=== PATIENT | male | born 1960 | race Caucasian/White ===

== ENCOUNTER 2017-08-14 19:20 | Inpatient (IN) | payer OTHER ==
[~2017-08-14] VITALS: Ht 175.3 cm; Wt 75.2 kg
[2017-08-14 20:30] LABS: Basophils # (auto) 0.1 uL; Basophils % (auto) 0.9 % (0.0-2.0); Eosinophils # (auto) 0.4 uL; Hematocrit 47.2 % (41.0-53.0); Hemoglobin 15.9 g/dL (13.5-17.5); Lymphocytes # (auto) 3.8 uL; Lymphocytes % (auto) 32.2 % (10.0-50.0); Mean Corpuscular Hemoglobin 29.9 pg (28.0-32.0); Mean Corpuscular Hgb Conc. 33.7 g/dL (32.0-36.0); Mean Corpuscular Volume 88.7 fL (80.0-100.0); Mean Platelet Volume 8.6 fL (6.9-10.8); Monocytes # (auto) 0.6 uL; Monocytes % (auto) 5.1 % (0.0-12.0); Neutrophils # (auto) 6.9 uL; Neutrophils % (auto) 58.8 % (37.0-80.0); Platelet Count (auto) 205 10^3/uL (140-450); Red Cell Distribution Width 14.3 % (11.8-14.3); White Blood Cell 11.8 10^3/uL (4.4-10.8)
[2017-08-14] MEDS ORDERED: IPRATROPIUM BROM 0.5 MG/2.5ML INH SOL NEB ONE (20:30)
[2017-08-14] MEDS ORDERED: ASPirin 81 mg TAB PO ONE (20:30)
[2017-08-14] MEDS ORDERED: ALBUTEROL SULF 2.5 MG/0.5ML(0.5%) NEB SOLN NEB ONE (20:30)
[2017-08-14 20:42] LABS: Albumin 3.4 g/dL (3.4-5.0); Anion Gap 7 (5-15); Aspartate Aminotransferase 29 U/L (15-37); BUN/Creatinine Ratio 8.4; Blood Urea Nitrogen 8 mg/dL (7-18); Calcium 8.3 mg/dL (8.5-10.1); Carbon Dioxide 22 mmol/L (21-32); Chloride 110 mmol/L (98-107); GFR African American 105 mL/min; GFR Non-African American 87 mL/min; Glucose 80 mg/dL (74-106); Magnesium 1.9 mg/dL (1.6-2.6); Potassium 3.2 mmol/L (3.5-5.1); Sodium 139 mmol/L (136-145)
[2017-08-14 20:47] LABS: Alkaline Phosphatase 57 U/L (45-117); Bilirubin, Total 0.6 mg/dL (0.2-1.0)
[2017-08-14] MEDS ORDERED: ACETAMINOPHEN 325 MG TAB PO ONE (21:00)
[2017-08-14] MEDS ORDERED: LORazepam 0.5 MG TAB PO ONE (21:00)
[2017-08-15] VITALS (8 sets, daily range): BP systolic 123–161; BP diastolic 63–97
[2017-08-15] MEDS ORDERED: MORPHINE SULF INJ 2 MG/ML SYRINGE 1ML IV PRN (02:30)
[2017-08-15] MEDS ORDERED: NITROGLYCERIN 0.4 MG SL TAB SL PRN (02:30)
[2017-08-15] MEDS ORDERED: ACETAMINOPHEN 500 MG TAB PO PRN (03:30)
[2017-08-15] MEDS ORDERED: ONDANSETRON HCL 4 MG/2 ML VIAL IV PRN (03:30)
[2017-08-15] MEDS ORDERED: POTASSIUM CHL 20 Meq TABLET PO ONE (03:30)
[2017-08-15] MEDS: ALPRAZolam 0.5 MG TAB PO PRN ×2 (03:46→15:56)
[2017-08-15] MEDS ORDERED: TAMS0.4C36 PO (04:19)
[2017-08-15] MEDS ORDERED: HYDR-4683 PO (04:19)
[2017-08-15] MEDS ORDERED: ALPR0.5T PO (04:19)
[2017-08-15] MEDS ORDERED: LISI10TA6 PO (04:19)
[2017-08-15 05:11] LABS: Urine Bilirubin Negative (Negative); Urine Blood Negative /uL (Negative); Urine Color Yellow (Yellow); Urine Glucose Normal (Normal); Urine Ketone Negative (Negative); Urine Nitrite Negative (Negative); Urine RBC <1 /hpf (0 - 3); Urine Squamous Epithelial Cell FEW /hpf (<5); Urine Urobilinogen Normal (Negative); Urine pH 5.5 (5.0-8.0)
[2017-08-15] MEDS ORDERED: INFLUENZA QUAD 2017-2018 0.5 ML SYRG IM ONE ×2 (05:30→05:56)
[2017-08-15 06:21] LABS: Basophils # (auto) 0.1 uL; Eosinophils # (auto) 0.5 uL; Eosinophils % (auto) 5.3 % (0.0-7.0); Hematocrit 44.5 % (41.0-53.0); Hemoglobin 14.9 g/dL (13.5-17.5); Lymphocytes # (auto) 3.9 uL; Lymphocytes % (auto) 40.8 % (10.0-50.0); Mean Corpuscular Hemoglobin 29.9 pg (28.0-32.0); Mean Corpuscular Hgb Conc. 33.4 g/dL (32.0-36.0); Mean Corpuscular Volume 89.4 fL (80.0-100.0); Mean Platelet Volume 8.5 fL (6.9-10.8); Monocytes # (auto) 0.8 uL; Monocytes % (auto) 8.3 % (0.0-12.0); Neutrophils # (auto) 4.3 uL; Neutrophils % (auto) 44.6 % (37.0-80.0); Nucleated Red Blood Cells % 0.1 %; Platelet Count (auto) 206 10^3/uL (140-450); Red Cell Distribution Width 14.3 % (11.8-14.3); White Blood Cell 9.7 10^3/uL (4.4-10.8)
[2017-08-15] MEDS: HYDROcodone-ACET 5/325MG TAB PO PRN ×2 (10:26→17:48)
[2017-08-15] MEDS: METOPROLOL TARTRATE 25 MG TAB PO SCH ×2 (10:26→21:52)
[2017-08-15] MEDS ORDERED: POTASSIUM CHL 10% (20 MEQ/15ML) 15ml ORAL SOLN PO ONE (10:30)
[2017-08-15] MEDS ORDERED: TAMSULOSIN HYDROCHLORIDE 0.4 MG CAP PO SCH (18:00)
[2017-08-16 05:36] VITALS: BP 129/74
[2017-08-16 06:23] LABS: Basophils # (auto) 0.1 uL; Eosinophils # (auto) 0.5 uL; Eosinophils % (auto) 5.7 % (0.0-7.0); Hematocrit 49.4 % (41.0-53.0); Hemoglobin 16.7 g/dL (13.5-17.5); Lymphocytes # (auto) 3.1 uL; Lymphocytes % (auto) 34.5 % (10.0-50.0); Mean Corpuscular Hgb Conc. 33.8 g/dL (32.0-36.0); Mean Platelet Volume 8.7 fL (6.9-10.8); Monocytes # (auto) 0.7 uL; Monocytes % (auto) 7.6 % (0.0-12.0); Neutrophils # (auto) 4.6 uL; Neutrophils % (auto) 51.2 % (37.0-80.0); Nucleated Red Blood Cells % 0.2 %; Platelet Count (auto) 199 10^3/uL (140-450); Red Cell Distribution Width 14.2 % (11.8-14.3)
[2017-08-16 06:36] LABS: INR 0.98 (0.9-1.15); Prothrombin Time 10.7 sec (9.37-12.3)
[2017-08-16 06:40] LABS: Albumin 3.4 g/dL (3.4-5.0); BUN/Creatinine Ratio 12.9; Magnesium 2.4 mg/dL (1.6-2.6); Total Protein 7.3 g/dL (6.4-8.2)
[2017-08-16 06:41] LABS: Bilirubin, Total 0.9 mg/dL (0.2-1.0)
[2017-08-16] MEDS: HYDROcodone-ACET 5/325MG TAB PO PRN ×2 (07:58→13:38)
[2017-08-16] MEDS: ALPRAZolam 0.5 MG TAB PO PRN (07:58)
[2017-08-16] MEDS: METOPROLOL TARTRATE 25 MG TAB PO SCH (09:04)
[2017-08-16 09:07] VITALS: BP 183/79
[2017-08-16] MEDS ORDERED: LISINOPRIL 20 MG TAB PO ONE (10:15)
[2017-08-16 12:03] VITALS: BP 137/75
[2017-08-16] MEDS ORDERED: METO25TA3 PO (13:38)
[2017-08-16 14:00] VITALS: BP 137/75
== END 2017-08-16 14:54 | disposition home or self-care (01) | DRG 310 ==
LOC: EDBD 19:20 → ER 19:25 → TELE 19:26 → TELE-CENTR 08-15 03:30
PROVIDERS: ADMIT Nurse Practitioner Family; ATTEND Nurse Practitioner Family
DX: I49.8 Other specified cardiac arrhythmias (principal); E87.6 Hypokalemia; I47.1 Supraventricular tachycardia; F41.9 Anxiety disorder, unspecified; I10 Essential (primary) hypertension; N40.0 Benign prostatic hyperplasia without lower urinary tract symptoms; I45.10 Unspecified right bundle-branch block; Z87.891 Personal history of nicotine dependence
CPT/HCPCS: 36415; 71010; 80053; 81001; 82962; 83735; 84443; 84484; 85025; 85610; 93005; 94640; 94761; 96372

== ENCOUNTER 2021-07-29 14:32 | Inpatient (IN) | payer OTHER ==
[~2021-07-29] VITALS: Ht 172.7 cm; Wt 89.9 kg
[~2021-07-29 14:32] MED LIST: ALPR0.5T PO; HYDR-4833 PO; LISI-716 PO; METO25TA36 PO; TAMS0.4C36 PO
[2021-07-29 15:53] LABS: BUN/Creatinine Ratio 11.7; Calcium 8.3 mg/dL (8.5-10.1); Magnesium 2.4 mg/dL (1.6-2.6); Potassium 3.2 mmol/L (3.5-5.1)
[2021-07-29 15:57] LABS: Basophils # (auto) 0.1 10 ^3/uL (0-0.2); Basophils % (auto) 0.4 % (0.0-2.0); Eosinophils # (auto) 0.5 10 ^3/uL (0-0.8); Eosinophils % (auto) 3.3 % (0.0-7.0); Hematocrit 38.3 % (41.0-53.0); Hemoglobin 12.6 g/dL (13.5-17.5); Lymphocytes # (auto) 2.3 10 ^3/uL (0.4-5.4); Lymphocytes % (auto) 14.3 % (10.0-50.0); Mean Corpuscular Hemoglobin 27.6 pg (28.0-32.0); Mean Corpuscular Hgb Conc. 32.8 g/dL (32.0-36.0); Mean Corpuscular Volume 83.9 fL (80.0-100.0); Monocytes # (auto) 0.9 10 ^3/uL (0-1.3); Monocytes % (auto) 5.3 % (0.0-12.0); Neutrophils # (auto) 12.4 10 ^3/uL (1.6-8.6); Neutrophils % (auto) 76.7 % (37.0-80.0); Red Blood Cells 4.56 10^6/uL (4.5-5.90); Red Cell Distribution Width 13.8 % (11.8-14.3); White Blood Cell 16.2 10^3/uL (4.4-10.8)
[2021-07-29 15:58] LABS: Bilirubin, Total 0.6 mg/dL (0.2-1.0); Total Protein 6.7 g/dL (6.4-8.2)
[2021-07-29 16:17] LABS: INR 1.07 (0.9-1.15)
[2021-07-29] MEDS ORDERED: POTASSIUM EFFERVESENT TAB 25 MEQ PO ONE (16:45)
[2021-07-29 19:19] LABS: Urine Bacteria NONE SEEN /hpf (None Seen); Urine Blood 1+ /uL (Negative); Urine Hyaline Cast MANY /lpf (0 - 2); Urine Mucus FEW (None Seen); Urine Specific Gravity 1.028 (1.001-1.035); Urine WBC 3 /hpf (0 - 3)
[2021-07-29] MEDS ORDERED: ASPirin 325 MG TAB PO ONE (19:45)
[2021-07-29] MEDS ORDERED: ONDANSETRON HCL 4 MG/2 ML VIAL IV PRN (22:45)
[2021-07-29] MEDS ORDERED: ALBUMIN 25% 100 ML IV ONE (22:45)
[2021-07-29] MEDS ORDERED: MORPHINE SULFATE 4 MG/ML SYR/VIAL IV PRN (22:45)
[2021-07-29] MEDS ORDERED: DOCUSATE SOD 100 MG CAP PO PRN (22:45)
[2021-07-30] MEDS ORDERED: MORPHINE SULFATE INJECTION 2 MG/ML SYRG IV PRN (00:15)
[2021-07-30] MEDS ORDERED: NITROGLYCERIN 0.4 MG SL TAB SL PRN (00:15)
[2021-07-30] MEDS: SODIUM CHLOR 0.9% PF (SALINE LOCK) 10ML VIAL/SYR IV SCH ×3 (06:07→22:47)
[2021-07-30 07:56] LABS: Basophils # (auto) 0.1 10 ^3/uL (0-0.2); Basophils % (auto) 0.5 % (0.0-2.0); Eosinophils # (auto) 0.9 10 ^3/uL (0-0.8)
[2021-07-30 07:58] LABS: Eosinophils % (auto) 6.4 % (0.0-7.0); Hematocrit 36.8 % (41.0-53.0); Hemoglobin 12.2 g/dL (13.5-17.5); Lymphocytes # (auto) 1.9 10 ^3/uL (0.4-5.4); Lymphocytes % (auto) 13.4 % (10.0-50.0); Mean Corpuscular Hemoglobin 27.8 pg (28.0-32.0); Mean Corpuscular Hgb Conc. 33.2 g/dL (32.0-36.0); Mean Corpuscular Volume 83.8 fL (80.0-100.0); Monocytes # (auto) 0.8 10 ^3/uL (0-1.3); Monocytes % (auto) 5.6 % (0.0-12.0); Neutrophils # (auto) 10.6 10 ^3/uL (1.6-8.6); Neutrophils % (auto) 74.1 % (37.0-80.0); Red Blood Cells 4.39 10^6/uL (4.5-5.90); Red Cell Distribution Width 13.8 % (11.8-14.3); White Blood Cell 14.4 10^3/uL (4.4-10.8)
[2021-07-30 08:10] LABS: Potassium 3.8 mmol/L (3.5-5.1)
[2021-07-30 08:20] LABS: Albumin 2.3 g/dL (3.4-5.0); BUN/Creatinine Ratio 14.6; Bilirubin, Total 0.5 mg/dL (0.2-1.0); Calcium 8.3 mg/dL (8.5-10.1); Total Protein 6.9 g/dL (6.4-8.2)
[2021-07-30 09:00] VITALS: BP 141/69
[2021-07-30] MEDS: cefTRIAXone 1GM/50ML D5W 50 ML IV SCH (09:35)
[2021-07-30] MEDS: ASPirin 81 mg TAB PO SCH (09:35)
[2021-07-30 09:45] VITALS: BP 151/88
[2021-07-30] MEDS: ACETAMINOPHEN 325 MG TAB PO PRN ×2 (10:15→22:55)
[2021-07-30] MEDS: ENOXAPARIN SOD 40 MG/0.4 ML SYRINGE SC SCH (10:25)
[2021-07-30] MEDS: METOPROLOL TARTRATE 25 MG TAB PO SCH ×2 (10:27→22:48)
[2021-07-30] MEDS: LISINOPRIL 20 MG TAB PO SCH (10:27)
[2021-07-30 17:13] VITALS: BP 99/56
[2021-07-30 22:00] VITALS: BP 131/76
[2021-07-30] MEDS: ATORVASTATIN 20 MG TAB PO SCH (22:47)
[2021-07-31] MEDS: SODIUM CHLOR 0.9% PF (SALINE LOCK) 10ML VIAL/SYR IV SCH ×3 (06:10→21:14)
[2021-07-31] MEDS: cefTRIAXone 1GM/50ML D5W 50 ML IV SCH (08:07)
[2021-07-31] MEDS ORDERED: ADENOSINE 69 MG in GIVE UN-DILUTED 0 ML IV STA (08:33)
[2021-07-31 09:00] VITALS: BP 116/74
[2021-07-31] MEDS: METOPROLOL TARTRATE 25 MG TAB PO SCH ×2 (09:20→21:17)
[2021-07-31] MEDS: ASPirin 81 mg TAB PO SCH (09:20)
[2021-07-31] MEDS: ENOXAPARIN SOD 40 MG/0.4 ML SYRINGE SC SCH (09:20)
[2021-07-31] MEDS: LISINOPRIL 20 MG TAB PO SCH (09:21)
[2021-07-31] MEDS: HYDROcodone-ACET 5/325MG TAB PO PRN ×3 (10:16→22:14)
[2021-07-31 11:00] VITALS: BP 124/63
[2021-07-31 11:24] LABS: Hepatitis B Surface Antibody Negative
[2021-07-31 11:54] LABS: Hepatitis A Total Antibody Negative
[2021-07-31 13:11] LABS: Alcohol, Urine < 3.0 mg/dL (0-10); Amphetamine Screen, Urine NEGATIVE (NEGATIVE); Barbiturate Scree,Urine NEGATIVE (NEGATIVE); Benzodiazephine Screen, Urine NEGATIVE (NEGATIVE); Cannabinoid Screen, Urine NEGATIVE (NEGATIVE); Cocaine Screen, Urine NEGATIVE (NEGATIVE); Opiate Scree,Urine NEGATIVE (NEGATIVE); Phencyclidine Screen, Urine NEGATIVE (NEGATIVE)
[2021-07-31 15:15] LABS: Hepatitis C Antibody Negative (Negative)
[2021-07-31 16:54] VITALS: BP 127/67
[2021-07-31] MEDS: ATORVASTATIN 20 MG TAB PO SCH (21:15)
[2021-07-31 22:00] VITALS: BP 101/69
[2021-08-01 05:00] VITALS: BP 125/70
[2021-08-01 05:07] LABS: RPR Non Reactive (Non Reactive)
[2021-08-01] MEDS: SODIUM CHLOR 0.9% PF (SALINE LOCK) 10ML VIAL/SYR IV SCH ×3 (05:44→20:23)
[2021-08-01 07:23] LABS: Albumin 1.9 g/dL (3.4-5.0); Bilirubin, Direct 0.1 mg/dL (0-0.2)
[2021-08-01 07:26] LABS: Bilirubin, Total 0.3 mg/dL (0.2-1.0); Total Protein 5.6 g/dL (6.4-8.2)
[2021-08-01 09:00] VITALS: BP 146/82
[2021-08-01] MEDS: cefTRIAXone 1GM/50ML D5W 50 ML IV SCH (09:09)
[2021-08-01] MEDS: ASPirin 81 mg TAB PO SCH (09:09)
[2021-08-01] MEDS: METOPROLOL TARTRATE 25 MG TAB PO SCH ×2 (09:09→20:23)
[2021-08-01] MEDS: ENOXAPARIN SOD 40 MG/0.4 ML SYRINGE SC SCH (09:10)
[2021-08-01] MEDS: LISINOPRIL 20 MG TAB PO SCH (09:10)
[2021-08-01] MEDS: HYDROcodone-ACET 5/325MG TAB PO PRN ×2 (10:27→20:24)
[2021-08-01 13:00] VITALS: BP 116/58
[2021-08-01] MEDS: NAPROXEN 500 MG TAB PO SCH ×2 (16:43→20:24)
[2021-08-01 16:47] VITALS: BP 147/83
[2021-08-01] MEDS: ATORVASTATIN 20 MG TAB PO SCH (20:23)
[2021-08-01 22:00] VITALS: BP 131/100
[2021-08-02 05:00] VITALS: BP 102/64
[2021-08-02] MEDS: SODIUM CHLOR 0.9% PF (SALINE LOCK) 10ML VIAL/SYR IV SCH ×3 (05:35→21:01)
[2021-08-02 08:50] VITALS: BP 105/60
[2021-08-02 09:00] VITALS: BP_SYST 128; BP_SYST 81; BP_DIAS 68; BP_DIAS 69
[2021-08-02] MEDS: cefTRIAXone 1GM/50ML D5W 50 ML IV SCH (09:46)
[2021-08-02] MEDS: ASPirin 81 mg TAB PO SCH (09:47)
[2021-08-02] MEDS: NAPROXEN 500 MG TAB PO SCH ×2 (09:47→21:00)
[2021-08-02] MEDS: HYDROcodone-ACET 5/325MG TAB PO PRN ×3 (09:47→20:49)
[2021-08-02] MEDS: ENOXAPARIN SOD 40 MG/0.4 ML SYRINGE SC SCH (09:50)
[2021-08-02] MEDS: METOPROLOL TARTRATE 25 MG TAB PO SCH ×3 (10:00→21:00)
[2021-08-02 10:30] VITALS: BP 116/62
[2021-08-02] MEDS: DOXYCYCLINE 100 MG TAB/CAP PO ONE ×2 (11:43→16:32)
[2021-08-02] MEDS: LISINOPRIL 20 MG TAB PO SCH (11:43)
[2021-08-02 11:55] LABS: Basophils # (auto) 0.1 10 ^3/uL (0-0.2); Eosinophils # (auto) 0.8 10 ^3/uL (0-0.8); Monocytes # (auto) 0.8 10 ^3/uL (0-1.3); Neutrophils # (auto) 7.9 10 ^3/uL (1.6-8.6)
[2021-08-02 11:59] LABS: Basophils % (auto) 0.7 % (0.0-2.0); Eosinophils % (auto) 7.3 % (0.0-7.0); Hematocrit 34.7 % (41.0-53.0); Hemoglobin 11.4 g/dL (13.5-17.5); Lymphocytes # (auto) 1.6 10 ^3/uL (0.4-5.4); Lymphocytes % (auto) 14.3 % (10.0-50.0); Mean Corpuscular Hemoglobin 27.3 pg (28.0-32.0); Mean Corpuscular Hgb Conc. 32.9 g/dL (32.0-36.0); Monocytes % (auto) 7.4 % (0.0-12.0); Neutrophils % (auto) 70.3 % (37.0-80.0); Red Blood Cells 4.18 10^6/uL (4.5-5.90); Red Cell Distribution Width 14.1 % (11.8-14.3); White Blood Cell 11.3 10^3/uL (4.4-10.8)
[2021-08-02 12:33] LABS: Albumin 1.8 g/dL (3.4-5.0); Potassium 4.3 mmol/L (3.5-5.1)
[2021-08-02 12:36] LABS: BUN/Creatinine Ratio 23.2; Bilirubin, Total 0.3 mg/dL (0.2-1.0); Total Protein 5.4 g/dL (6.4-8.2)
[2021-08-02 13:00] VITALS: BP 106/66
[2021-08-02 16:16] LABS: Albumin 1.8 g/dL (3.4-5.0); Bilirubin, Direct 0.1 mg/dL (0-0.2)
[2021-08-02 16:19] LABS: Bilirubin, Total 0.3 mg/dL (0.2-1.0); Total Protein 5.5 g/dL (6.4-8.2)
[2021-08-02] MEDS: DOXYCYCLINE 100 MG TAB/CAP PO SCH (21:00)
[2021-08-02] MEDS: ATORVASTATIN 20 MG TAB PO SCH (21:01)
[2021-08-02 22:00] VITALS: BP 106/57
[2021-08-03 05:00] VITALS: BP 93/55
[2021-08-03] MEDS: SODIUM CHLOR 0.9% PF (SALINE LOCK) 10ML VIAL/SYR IV SCH ×3 (06:07→22:10)
[2021-08-03 08:05] LABS: Basophils # (auto) 0.1 10 ^3/uL (0-0.2); Basophils % (auto) 0.5 % (0.0-2.0); Hemoglobin 11.8 g/dL (13.5-17.5); Lymphocytes # (auto) 1.6 10 ^3/uL (0.4-5.4); Neutrophils # (auto) 8.6 10 ^3/uL (1.6-8.6)
[2021-08-03 08:09] LABS: Eosinophils # (auto) 1.3 10 ^3/uL (0-0.8); Eosinophils % (auto) 10.3 % (0.0-7.0); Hematocrit 36.3 % (41.0-53.0); Mean Corpuscular Hgb Conc. 32.5 g/dL (32.0-36.0); Monocytes # (auto) 0.7 10 ^3/uL (0-1.3); Monocytes % (auto) 5.6 % (0.0-12.0); Neutrophils % (auto) 70.6 % (37.0-80.0); Red Blood Cells 4.37 10^6/uL (4.5-5.90); Red Cell Distribution Width 14.2 % (11.8-14.3); White Blood Cell 12.2 10^3/uL (4.4-10.8)
[2021-08-03 08:39] LABS: Albumin 1.7 g/dL (3.4-5.0); Bilirubin, Direct 0.2 mg/dL (0-0.2); Bilirubin, Total 0.3 mg/dL (0.2-1.0); Total Protein 5.9 g/dL (6.4-8.2)
[2021-08-03 08:44] VITALS: BP 101/56
[2021-08-03] MEDS: HYDROcodone-ACET 5/325MG TAB PO PRN ×3 (09:18→22:10)
[2021-08-03] MEDS: ENOXAPARIN SOD 40 MG/0.4 ML SYRINGE SC SCH (09:18)
[2021-08-03] MEDS: ASPirin 81 mg TAB PO SCH (09:18)
[2021-08-03] MEDS: NAPROXEN 500 MG TAB PO SCH ×2 (09:19→22:10)
[2021-08-03] MEDS: DOXYCYCLINE 100 MG TAB/CAP PO SCH ×2 (09:19→22:09)
[2021-08-03 13:00] VITALS: BP 107/63
[2021-08-03 17:00] VITALS: BP 132/78
[2021-08-03 22:00] VITALS: BP 148/73
[2021-08-03] MEDS: ATORVASTATIN 20 MG TAB PO SCH (22:10)
[2021-08-04] MEDS ORDERED: dilTIAZem 25 MG/5 ML VIAL IV ONE ×2 (03:34→03:45)
[2021-08-04] MEDS: SODIUM CHLOR 0.9% PF (SALINE LOCK) 10ML VIAL/SYR IV SCH ×3 (04:56→21:09)
[2021-08-04 05:00] VITALS: BP 99/68
[2021-08-04 06:37] LABS: Albumin 1.7 g/dL (3.4-5.0); Bilirubin, Direct 0.2 mg/dL (0-0.2); Bilirubin, Total 0.3 mg/dL (0.2-1.0); Total Protein 5.1 g/dL (6.4-8.2)
[2021-08-04 09:00] VITALS: BP 92/60
[2021-08-04] MEDS: ASPirin 81 mg TAB PO SCH (11:32)
[2021-08-04] MEDS: DOXYCYCLINE 100 MG TAB/CAP PO SCH ×2 (11:33→21:10)
[2021-08-04] MEDS: NAPROXEN 500 MG TAB PO SCH ×2 (11:34→21:10)
[2021-08-04] MEDS: ENOXAPARIN SOD 40 MG/0.4 ML SYRINGE SC SCH (11:35)
[2021-08-04] MEDS: HYDROcodone-ACET 5/325MG TAB PO PRN ×2 (11:55→23:26)
[2021-08-04 13:00] VITALS: BP 89/68
[2021-08-04] MEDS: METOPROLOL TARTRATE 25 MG TAB PO SCH ×2 (13:04→21:11)
[2021-08-04] MEDS ORDERED: SODIUM CHLORIDE 0.9% 250 ML IV ONE (14:45)
[2021-08-04 17:00] VITALS: BP 129/65
[2021-08-04 21:03] VITALS: BP 130/80
[2021-08-04] MEDS: methylPREDNISolone SOD SUCC 40 MG/ML VL IV SCH (21:10)
[2021-08-04] MEDS: ATORVASTATIN 20 MG TAB PO SCH (21:10)
[2021-08-05 06:04] LABS: Albumin 1.8 g/dL (3.4-5.0)
[2021-08-05 06:10] LABS: Bilirubin, Direct 0.2 mg/dL (0-0.2); Bilirubin, Total 0.4 mg/dL (0.2-1.0); Total Protein 6.1 g/dL (6.4-8.2)
[2021-08-05] MEDS: SODIUM CHLOR 0.9% PF (SALINE LOCK) 10ML VIAL/SYR IV SCH ×2 (06:34→13:59)
[2021-08-05] MEDS: methylPREDNISolone SOD SUCC 40 MG/ML VL IV SCH ×3 (06:40→22:04)
[2021-08-05 08:41] VITALS: BP 145/87
[2021-08-05] MEDS: DOXYCYCLINE 100 MG TAB/CAP PO SCH ×2 (08:57→22:05)
[2021-08-05] MEDS: ENOXAPARIN SOD 40 MG/0.4 ML SYRINGE SC SCH (08:57)
[2021-08-05] MEDS: ASPirin 81 mg TAB PO SCH (08:57)
[2021-08-05] MEDS: METOPROLOL TARTRATE 25 MG TAB PO SCH ×2 (08:58→22:05)
[2021-08-05] MEDS: NAPROXEN 500 MG TAB PO SCH ×2 (08:59→22:05)
[2021-08-05] MEDS: HYDROcodone-ACET 5/325MG TAB PO PRN ×2 (09:01→14:05)
[2021-08-05 12:29] LABS: BUN/Creatinine Ratio 26.4; Calcium 8.2 mg/dL (8.5-10.1); Potassium 4.7 mmol/L (3.5-5.1)
[2021-08-05 13:00] VITALS: BP 125/76
[2021-08-05 17:00] VITALS: BP 149/91
[2021-08-05 20:00] VITALS: BP 133/65
[2021-08-05 21:30] VITALS: BP_SYST 153; BP_SYST 85; BP_DIAS 107; BP_DIAS 55
[2021-08-05] MEDS: ATORVASTATIN 20 MG TAB PO SCH (22:04)
[2021-08-06] MEDS: HYDROcodone-ACET 5/325MG TAB PO PRN ×4 (00:25→21:20)
[2021-08-06 05:00] VITALS: BP 127/70
[2021-08-06] MEDS: methylPREDNISolone SOD SUCC 40 MG/ML VL IV SCH ×3 (06:22→21:12)
[2021-08-06] MEDS: SODIUM CHLOR 0.9% PF (SALINE LOCK) 10ML VIAL/SYR IV SCH ×4 (06:23→21:11)
[2021-08-06 07:55] LABS: Albumin 1.9 g/dL (3.4-5.0); Bilirubin, Direct 0.1 mg/dL (0-0.2); Bilirubin, Total 0.3 mg/dL (0.2-1.0); Total Protein 5.6 g/dL (6.4-8.2)
[2021-08-06 09:00] VITALS: BP 125/72
[2021-08-06] MEDS: ASPirin 81 mg TAB PO SCH (09:05)
[2021-08-06] MEDS: NAPROXEN 500 MG TAB PO SCH ×2 (09:06→21:13)
[2021-08-06] MEDS: DOXYCYCLINE 100 MG TAB/CAP PO SCH ×2 (09:06→21:13)
[2021-08-06] MEDS: METOPROLOL TARTRATE 25 MG TAB PO SCH ×2 (09:06→21:13)
[2021-08-06] MEDS: ENOXAPARIN SOD 40 MG/0.4 ML SYRINGE SC SCH (09:07)
[2021-08-06 13:00] VITALS: BP 141/75
[2021-08-06 17:00] VITALS: BP 142/77
[2021-08-06] MEDS: ATORVASTATIN 20 MG TAB PO SCH (21:12)
[2021-08-06 22:00] VITALS: BP 133/70
[2021-08-07 05:00] VITALS: BP 138/76
[2021-08-07] MEDS: SODIUM CHLOR 0.9% PF (SALINE LOCK) 10ML VIAL/SYR IV SCH ×2 (06:02→14:13)
[2021-08-07] MEDS: methylPREDNISolone SOD SUCC 40 MG/ML VL IV SCH ×2 (06:03→14:13)
[2021-08-07 08:00] VITALS: BP 130/71
[2021-08-07 08:46] VITALS: BP 130/71
[2021-08-07] MEDS: ASPirin 81 mg TAB PO SCH (09:26)
[2021-08-07] MEDS: METOPROLOL TARTRATE 25 MG TAB PO SCH (09:26)
[2021-08-07] MEDS: ENOXAPARIN SOD 40 MG/0.4 ML SYRINGE SC SCH (09:27)
[2021-08-07] MEDS: DOXYCYCLINE 100 MG TAB/CAP PO SCH (09:27)
[2021-08-07] MEDS: NAPROXEN 500 MG TAB PO SCH (09:27)
[2021-08-07] MEDS: HYDROcodone-ACET 5/325MG TAB PO PRN ×2 (09:27→13:39)
[2021-08-07 13:18] VITALS: BP 151/87
[2021-08-07 13:32] VITALS: BP 130/71
== END 2021-08-07 15:09 | disposition home or self-care (01) | DRG 281 ==
LOC: ER 14:32 → TELE 07-30 00:06 → TELE-WESTW 07-30 08:50
PROVIDERS: ADMIT Nurse Practitioner Family; ATTEND Family Medicine
DX: I21.4 Non-ST elevation (NSTEMI) myocardial infarction (principal); A69.20 Lyme disease, unspecified; I47.1 Supraventricular tachycardia; E88.09 Other disorders of plasma-protein metabolism, not elsewhere classified; I10 Essential (primary) hypertension; Z20.822 Contact with and (suspected) exposure to COVID-19; Z96.652 Presence of left artificial knee joint; F10.10 Alcohol abuse, uncomplicated; F41.9 Anxiety disorder, unspecified; R42 Dizziness and giddiness; D75.839 Thrombocytosis, unspecified; D72.829 Elevated white blood cell count, unspecified; E87.6 Hypokalemia; R74.01 Elevation of levels of liver transaminase levels; I20.0 Unstable angina; R50.9 Fever, unspecified; I77.6 Arteritis, unspecified; B34.9 Viral infection, unspecified; Z82.3 Family history of stroke; Z87.891 Personal history of nicotine dependence; Z90.49 Acquired absence of other specified parts of digestive tract
CPT/HCPCS: 36415; 71045; 76705; 78452; 80048; 80053; 80061; 80076; 80307; 81001; 82728; 83735; 83880; 84484; 85025; 85610; 85652; 86038; 86141; 86431; 86592; 86644; 86645; 86658; 86664; 86703; 86704; 86706; 86708; 86738; 86778; 86803; 87040; 87086; 87340; 87426; 87804; 93005; 93017; 93306; 96365; 96367; G0378; J0153; J0696; P9047

== ENCOUNTER 2024-12-25 20:24 | Inpatient (IN) | payer OTHER ==
[~2024-12-25] VITALS: Ht 172.7 cm; Wt 93.7 kg
[~2024-12-25 20:24] MED LIST changes: -LISI-716 PO; +LISI10TA34 PO; -TAMS0.4C36 PO; +TAMS0.4C39 PO
[2024-12-25] MEDS ORDERED: ADENOSINE 6 MG/2 ML INJ IV ONE (20:28)
[2024-12-25] MEDS: ADENOSINE 6 MG/2 ML INJ IV ONE (20:29)
--- NOTE | 2024-12-25 20:46 | ED.PDOC ---
HPI Comments 64-year-old male with PMHx SVT brought in by EMS presents with a chief complaint of palpitations. Patient was given 6mg of Adenosine by EMS and EMS reports that patient did not convert in the field. Patient denies any active chest pain at this time or SOB. Patient is alert and oriented x 4. Patient is currently at 187 BPM at time of evaluation, converted to 109, then went back to 201. No other symptoms or modifying factors present at this time. 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 Notes, Medications, Allergies Allergies: Coded Allergies: NO KNOWN ALLERGIES (Unverified , 08/14/17) Home Meds Active Scripts Metoprolol Succinate (Toprol Xl) 25 Mg Tab, 1 TAB PO DAILY, #30 TAB 0 Refills Prov:DEVI OVALLES MD 08/16/17 Reported Medications Lisinopril (Lisinopril) 10 Mg Tab, 10 MG PO DAILY, TAB 08/15/17 Alprazolam (Xanax) 0.5 Mg Tb, 1 TAB PO BID, #60 TAB 08/15/17 Hydrocodone-Acetaminophen ([place] 5/325MG) 1 Tab Tb, 1 TAB PO TID, #90 TAB 08/15/17 Tamsulosin Hcl (Tamsulosin Hcl) 0.4 Mg Cap, 1 CAP PO DAILY, #30 CAP 5 Refills 08/15/17 Information Source: Patient, Emergency Med Personnel Mode of Arrival: EMS Severity: Moderate Timing: Minutes Duration: Since onset Prehospital treatment: 12 Lead EKG, Treatment (6mg Adenosine) Past Medical History PAST MEDICAL HISTORY: Anxiety, HTN Surgical History: Denies all surgeries Family History Family History: Unknown Social History Smoker: Quit Less Than 1 Year Alcohol: Denies ETOH Use Drugs: Denies Drug Use Lives In: Home Constitutional: denies: chills, diaphoresis, fatigue, fever, malaise, sweats, weakness, others EENTM: denies: blurred vision, double vision, ear bleeding, ear discharge, ear drainage, ear pain, ear ringing, eye pain, eye redness, hearing loss, mouth pain, mouth swelling, nasal discharge, nose bleeding, nose congestion, nose pain, photophobia, tearing, throat pain, throat swelling, voice changes, others Respiratory: denies: cough, hemoptysis, orthopnea, SOB at rest, shortness of breath, SOB with excertion, stridor, wheezing, others Cardiovascular: reports: irregular heart beat, palpitations; denies: chest pain, dizzy spells, diaphoresis, Dyspnea on exertion, edema, left arm pain, lightheadedness, PND, syncope, others Gastrointestinal: denies: abdomen distended, abdominal pain, blood streaked bowels, constipated, diarrhea, dysphagia, difficulty swallowing, hematemesis, melena, nausea, poor appetite, poor fluid intake, rectal bleeding, rectal pain, vomiting, others Genitourinary: denies: burning, dysuria, flank pain, frequency, hematuria, incontinence, penile discharge, penile sore, pain, testicle pain, testicle swelling, urgency, others Neurological: denies: dizziness, fainting, headache, left sided numbness, left sided weakness, numbness, paresthesia, pre-existing deficit, right sided numbness, right sided weakness, seizure, speech problems, tingling, tremors, wea kness, others Musculoskeletal: denies: back pain, gout, joint pain, joint swelling, muscle pain, muscle stiffness, neck pain, others Integumetry: denies: bruises, change in color, change in hair/nails, dryness, l aceration, lesions, lumps, rash, wounds, others Allergic/Immunocompromised: denies: Difficulty Healing, Frequent Infections, Hives, Itching, others Hematologic/Lymphatic: denies: anemia, blood clots, easy bleeding, easy bruising, swollen glands, others Endocrine: denies: excessive hunger, excessive sweating, excessive thirst, excessive urination, flushing, intolerance to cold, intolerance to heat, unexplained weight gain, unexplained weight loss, others Psychiatric: denies: anxiety, bipolar disorder, depression, hopeless, panic disorder, schizophrenia, sleepless, suicidal, others All Other Systems: Reviewed and Negative Physical Exam General Appearance: No Apparent Distress, Normal HEENT: Normal ENT Inspection, Pharynx Normal, TMs Normal Neck: Full Range of Motion, Non-Tender, Normal, Normal Inspection Respiratory: Chest Non-Tender, Lungs Clear, No Accessory Muscle Use, No Respiratory Distress, Normal Breath Sounds Cardiovascular: No Edema, No JVD, No Murmur, No Gallop, Normal Peripheral Pulses, Regular Rate/Rhythm Breast Exam: Deferred Gastrointestinal: No Organomegaly, Non Tender, No Pulsatile Mass, Normal Bowel Sounds, Soft Genitalia: Deferred Pelvic: Deferred Rectal: Deferred Extremities: No calf tenderness, Normal capillary refill, Normal inspection, Normal range of motion, Non-tender, No pedal edema Musculoskeletal : Apperance: Normal Neurologic: Alert, optometric tech II-XII nml as Tested, No Motor Deficits, Normal Affect, Normal Mood, No Sensory Deficits Cerebellar Function: Normal Reflexes: Normal Skin: Dry, Normal Color, Warm Lymphatic: No Adenopathy Was a procedure done? Was a procedure done?: No CP Differential Dx Differential Diagnosis: A-fib, A-Flutter, SD, PSVT, Sinus Tachycardia, V-Fib, Other X-Ray, Labs, Meds, VS Vital Signs Date Time Temp Pulse Resp B/P (MAP) Pulse Ox O2 Delivery O2 Flow Rate FiO2 12/25/24 22:00 98.3 94 12 140/69 (92) 95 98.3 12/25/24 21:00 98.3 94 12 121/68 (85) 97 98.3 12/25/24 20:30 98.3 148 15 139/107 (118) 95 98.3 12/25/24 20:24 98.9 117 18 144/93 (110) 98 98.9 Lab Test 12/25/24 21:48 12/25/24 20:50 Range/Units Troponin I High Sensitivity Pending 182 *H </=54 ng/L White Blood Count 11.4 H 4.4-10.8 10^3/uL Red Blood Count 5.00 4.5-5.90 10^6/uL Hemoglobin 14.3 13.5-17.5 g/dL Hematocrit 45.4 41.0-53.0 % Mean Corpuscular Volume 90.7 80.0-100.0 fL Mean Corpuscular Hemoglobin 28.5 28.0-32.0 pg Mean Corpuscular Hemoglobin Concent 31.5 L 32.0-36.0 g/dL Red Cell Distribution Width 14.0 11.8-14.3 % Platelet Count 235 140-450 10^3/uL Mean Platelet Volume 8.5 6.9-10.8 fL Neutrophils (%) (Auto) 69.3 37.0-80.0 % Lymphocytes (%) (Auto) 22.5 10.0-50.0 % Monocytes (%) (Auto) 6.5 0.0-12.0 % Eosinophils (%) (Auto) 0.6 0.0-7.0 % Basophils (%) (Auto) 1.1 0.0-2.0 % Neutrophils # (Auto) 7.9 1.6-8.6 10 ^3/uL Lymphocytes # (Auto) 2.6 0.4-5.4 10 ^3/uL Monocytes # (Auto) 0.7 0-1.3 10 ^3/uL Eosinophils # (Auto) 0.1 0-0.8 10 ^3/uL Basophils # (Auto) 0.1 0-0.2 10 ^3/uL Nucleated Red Blood Cells 0.2 % Prothrombin Time 10.3 9.3-11.8 sec Prothrombin Time INR 0.97 0.9-1.15 Activated Partial Thromboplast Time 20.5 L 24.5-34.5 SEC Sodium Level 138 136-145 mmol/L Potassium Level 3.5 3.5-5.1 mmol/L Chloride Level 110 H 98-107 mmol/L Carbon Dioxide Level 17 L 20-31 mmol/L Anion Gap 11 5-15 Blood Urea Nitrogen 15 9-23 mg/dL Creatinine 1.62 H 0.700-1.30 mg/dL Glomerular Filtration Rate Calc 47 >90 mL/min BUN/Creatinine Ratio 9.3 L 10.0-20.0 Serum Glucose 132 H 74-106 mg/dL Calcium Level 9.1 8.7-10.4 mg/dL Magnesium Level 2.0 1.6-2.6 mg/dL Total Bilirubin 0.5 0.2-1.0 mg/dL Aspartate Amino Transferase (AST) 48 H 13-40 U/L Alanine Aminotransferase (ALT) 23 7-40 U/L Alkaline Phosphatase 61 46-116 U/L Total Protein 6.3 5.7-8.2 g/dL Albumin 4.2 3.2-4.8 g/dL Current Medications Medications (Trade) Dose Ordered Sig/Rafael Route Start Time Stop Time Status Last Admin Amiodarone HCl 100 ml @ 600 mls/hr ONCE ONCE IV 12/25/24 20:45 12/25/24 20:54 DC 12/25/24 20:56 Time of 1ST Reevaluation: 20:58 Reevaluation 1ST: Unchanged Patient Education/Counseling: Diagnosis, Treatment, Prognosis Family Education/Counseling: No Family Present Departure 1 Departure Time of Disposition: 22:18 Impression: Primary Impression: SVT (supraventricular tachycardia) Additional Impression: Intermediate coronary syndrome Disposition: 09 ADMITTED INPATIENT Admit to: Tele Condition: Guarded Discharged With: Self Comments SVT with Refractory Response to Adenosine Chief Complaint: Palpitations and shortness of breath History of Present Illness: 64-year-old male presents to the emergency department with palpitations and shortness of breath that began approximately 6 hours prior to arrival. EMS identified rapid heart rate consistent with SVT. Pre-hospital treatment included administration of adenosine 6mg followed by 12mg, with temporary conversion to sinus rhythm for a few seconds before reverting to SVT. In the ED, patient received an additional dose of adenosine 12mg with similar temporary response. After consultation with cardiology, patient was administered amiodarone 150mg bolus followed by continuous infusion, which successfully maintained sinus rhythm. 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 Problem List: 1. Supraventricular tachycardia 2. Acute kidney injury 3. Elevated troponin 4. Mild leukocytosis Differential Diagnosis: SVT (AVNRT vs AVRT), Atrial Flutter, Atrial Fibrillation, Sinus Tachycardia, Anxiety-induced tachycardia ED Course: Patient received multiple doses of adenosine with temporary response, followed by successful rhythm control with amiodarone bolus and infusion. Cardiology consultation obtained. Assessment and Plan: 1. Supraventricular Tachycardia: - Successfully converted to sinus rhythm with amiodarone - Continue amiodarone infusion - Admission to telemetry unit for monitoring - Cardiology consultation for management and follow-up 2. Acute Kidney Injury: - Likely pre-renal due to tachycardia - Monitor renal function - Maintain adequate hydration 3. Elevated Troponin: - Likely demand ischemia due to prolonged tachycardia - Serial troponin monitoring - Further cardiac workup during admission Disposition: Admit to telemetry unit under cardiology service Billing Information: ICD-10: I47.1 - Supraventricular tachycardia ICD-10: N17.9 - Acute kidney injury, unspecified ICD-10: R07.89 - Other chest pain ICD-10: R06.02 - Shortness of breath Critical Care Note Critical Care Time?: Yes (35 min-critical care time only) Critical care comment: Total critical care time: Approximately 36 minutes Due to a high probability of clinically significant, life threatening deterioration, the patient required my highest level of preparedness to int ervene emergently and I personally spent this critical care time directly and personally managing the patient. This critical care time included obtaining a history; examining the patient; pulse oximetry; ordering and review of studies; arranging urgent treatment with development of a management plan; evaluation of patient's response to treatment; frequent reassessment; and, discussions with other providers. This critical care time was performed to assess and manage the high probability of imminent, life-threatening deterioration that could result in multi-organ failure. It was exclusive of separately billable procedures and treating other patients. Stability Stability form required: No Heart Score Heart Score: Heart Score Response (Comments) Value History Moderate Suspicious 1 EKG Repolarization Disturb 1 Age >65 2 Risk Factors 1 or 2 risk factors 1 Troponin >3 x's Normal limit 2 Total 7 I personally scribed for GROVER KEANE MD ([email or web address]) on 12/25/24 at 20:46. Electronically submitted by Lewis De León ([email or web address]). GROVER KEANE MD Dec 25, 2024 20:46
[2024-12-25] MEDS: AMIODARONE BOLUS KIT 100 ML IV ONE (20:56)
[2024-12-25 21:09] LABS: Basophils # (auto) 0.1 10 ^3/uL (0-0.2); Basophils % (auto) 1.1 % (0.0-2.0); Eosinophils # (auto) 0.1 10 ^3/uL (0-0.8); Eosinophils % (auto) 0.6 % (0.0-7.0); Hematocrit 45.4 % (41.0-53.0); Hemoglobin 14.3 g/dL (13.5-17.5); Lymphocytes # (auto) 2.6 10 ^3/uL (0.4-5.4); Lymphocytes % (auto) 22.5 % (10.0-50.0); Mean Corpuscular Hemoglobin 28.5 pg (28.0-32.0); Mean Corpuscular Hgb Conc. 31.5 g/dL (32.0-36.0); Mean Corpuscular Volume 90.7 fL (80.0-100.0); Monocytes # (auto) 0.7 10 ^3/uL (0-1.3); Monocytes % (auto) 6.5 % (0.0-12.0); Neutrophils # (auto) 7.9 10 ^3/uL (1.6-8.6); Neutrophils % (auto) 69.3 % (37.0-80.0); Nucleated Red Blood Cells % 0.2 %; Platelet Count (auto) 235 10^3/uL (140-450); White Blood Cell 11.4 10^3/uL (4.4-10.8)
[2024-12-25 21:20] LABS: Alanine Aminotransferase 23 U/L (7-40); Albumin 4.2 g/dL (3.2-4.8); Alkaline Phosphatase 61 U/L (46-116); Anion Gap 11 (5-15); BUN/Creatinine Ratio 9.3 (10.0-20.0); Bilirubin, Total 0.5 mg/dL (0.2-1.0); Blood Urea Nitrogen 15 mg/dL (9-23); Calcium 9.1 mg/dL (8.7-10.4); Sodium 138 mmol/L (136-145); Total Protein 6.3 g/dL (5.7-8.2)
[2024-12-25 21:23] LABS: INR 0.97 (0.9-1.15); Partial Thromboplastin Time 20.5 SEC (24.5-34.5); Prothrombin Time 10.3 sec (9.3-11.8)
[2024-12-25] MEDS: AMIODARONE 360mg/200mL PREMIX 200 ML IV ONE (21:29)
[2024-12-25 21:39] LABS: Aspartate Aminotransferase 48 U/L (13-40); Carbon Dioxide 17 mmol/L (20-31); Chloride 110 mmol/L (98-107); Glucose 132 mg/dL (74-106); Potassium 3.5 mmol/L (3.5-5.1)
--- NOTE | 2024-12-25 21:42 | DVH ---
INDICATION: SOB TECHNIQUE: Frontal view of the chest. COMPARISON: CHEST XRAY 1 VIEW on DOS: 07/29/21 FINDINGS: . The heart and mediastinal contours are grossly unremarkable. There is no evidence of pleural disea se. The lungs are clear. The bony structures of the chest are intact without fracture. IMPRESSION: 1. No evidence of acute disease.
[2024-12-25] MEDS: ASPirin 81 mg TAB PO ONE (22:49)
[2024-12-25 23:12] VITALS: PULSE 187; O2SAT 95
[2024-12-25] MEDS ORDERED: OXYC-963 PO (23:21)
[2024-12-25] MEDS ORDERED: ATOR40TA52 PO (23:21)
[2024-12-25] MEDS ORDERED: DULO1CAP5 PO (23:21)
[2024-12-25] MEDS ORDERED: LEFL1TAB3 PO (23:21)
[2024-12-25] MEDS ORDERED: QUET100T47 PO (23:21)
[2024-12-25] MEDS ORDERED: MORPHINE SULFATE INJ 2 MG/ml SYRG IV PRN (23:30)
[2024-12-25] MEDS ORDERED: NITROGLYCERIN 0.4 MG SL TAB SL PRN (23:30)
[2024-12-25] MEDS ORDERED: LACTULOSE 20Gm/30ML SOLN PO PRN (23:45)
[2024-12-25 23:48] LABS: Magnesium 1.9 mg/dL (1.6-2.6)
[2024-12-26] VITALS (7 sets, daily range): BP systolic 112–167; BP diastolic 71–97; PULSE 62–77; RESP 17–20; TEMP 97.5–98.6; O2SAT 93–98
[2024-12-26 00:04] LABS: Blood Alcohol < 3.0 mg/dL (<10)
[2024-12-26] MEDS: PANTOPRAZOLE 40 MG/10 ML VIAL INJ IV ONE (00:30)
[2024-12-26] MEDS: ATORVASTATIN 20 MG TAB PO ONE (00:30)
[2024-12-26] MEDS: QUEtiapine FUMARATE 100 MG TAB PO SCH (00:30)
[2024-12-26] MEDS: HYDROcodone-ACET 5/325MG TAB PO SCH (00:31)
[2024-12-26 02:04] LABS: Amphetamine Screen, Urine Neg (NEGATIVE); Barbiturate Scree,Urine Neg (NEGATIVE); Benzodiazephine Screen, Urine Neg (NEGATIVE); Cannabinoid Screen, Urine Pos (NEGATIVE); Cocaine Screen, Urine Neg (NEGATIVE); Opiate Scree,Urine Pos (NEGATIVE); Phencyclidine Screen, Urine Neg (NEGATIVE)
[2024-12-26] MEDS: AMIODARONE 360mg/200mL PREMIX 200 ML IV SCH (03:00)
--- NOTE | 2024-12-26 03:00 | DVHHPRES ---
History of Present Illness Resident Creating Document: AZRA BROWNING RESIDENT Reason for Visit: palpitation History of Present Illness Patient is a 64-year-old male with a past medical history an initial SVT in 2020, PA, rheumatoid arthritis, BPH, hypertension and hyperlipidemia presenting to the ED with symptoms of palpitation. According to the patient, he was walking in his house when he suddenly started experiencing this rapid heart rate associated with shortness of breath. Thus prompting this ED visit. He received two doses of Adenosine en route to the ED. Patient denied starting any new medication, alcohol use, or illicit drug use. Initial vital were 117, 148 BPM which converted to 109 after adenosine. At the time of my interaction with the patient, he denied any chest pain, any palpitation, shortness of breath any fatigue or diaphoresis. Of note, Patient's medical record from 2020 revealed that, In 2020, patient had FUO with associated chest pain for 1 month. ID physician wrote, "He also had Elevated troponin possibly secondary to zoonotic disease such as Leptospirosis vs q fever or viral: Carditis. PATIENT HAS EXPOSURE TO DOGS URINE ( THE DOG WAS SICK AND HE HAS BEEN CLEANING IT FOR MONTH AND THEN IT WAS BLEEDING) [facility] however he did not have much information of dog as no studies were done. It was euthanized 2 weeks ago. Hence this raises concern of Leptospirosis and or Q fever due to Bartonella. Pending Cardiology evaluation for SVT" Per the cardiology, " PATIENT'S PRESENTATION CONSISTENT WITH EITHER VIRAL SYNDROME VS INFLAMMATORY PROCESS SUCH VASCULITIS CONSIDER A SHORT COURSE OF STEROIDS/ IMMUNOMODULATORS" Past medical history: PA and SVT 2020, rheumatoid arthritis, BPH, hypertension, and hyperlipidemia, Leptospirosis vs q fever Past surgical history: Appendectomy, goal cholecystectomy done he also had left knee knee replacement and bilateral shoulder Social history patient lives at home with his son and his family, patient used to drink and smoke. Smoking maldonado he smoked about a pack a day for 30 years but quit about some time ago drinking 2 he said he used to drink but not anymore Family history: Noncontributory Review of Systems Review of Systems Constitutional: Denies fever no chills no feeling of malaise, at base line has RA, HEENT: Denies headache, ear pain, ear discharges, conjunctivitis, nasal discharge throat pain Cardiovascular: Denies chest pain, palpitation, orthopnea, PND, or pedal edema Respiratory: Denies shortness of breath, cough cough, sputum production, hemoptysis, GI: Denies abdominal pain, nausea, vomiting, diarrhea, hematemesis, hematochezia, : Denies frequency, urgency, hematuria, Endocrine: Denies unintentional weight gain or weight loss, feeling of hot flashes, Magdiel: Denies easy bruising, bleeding disorders, epistaxis Musculoskeletal: Denies joint pains, muscle aches Psych: No evidence of depression, chen, suicidal ideation Allergies: Coded Allergies: NO KNOWN ALLERGIES (Unverified , 08/14/17) Medications Current Medications Medications Dose Ordered Sig/Rafael Route Start Time Stop Time Status Last Admin Dose Admin Nitroglycerin 0.4 mg Q5MINP PRN SL 12/25/24 23:30 Morphine Sulfate 2 mg Q30M PRN IV 12/25/24 23:30 Acetaminophen/ Hydrocodone Bitart 1 tab TID PO 12/25/24 23:45 12/26/24 00:31 1 TAB Quetiapine Fumarate 100 mg DAILY PO 12/25/24 23:45 12/26/24 00:30 100 MG Tamsulosin HCl 0.4 mg DAILY PO 12/26/24 10:00 Atorvastatin Calcium 40 mg HS PO 12/26/24 22:00 Aspirin 81 mg DAILY PO 12/26/24 10:00 Pantoprazole Sodium 40 mg DAILY IV 12/26/24 10:00 Docusate Sodium 100 mg BID PO 12/26/24 10:00 Lactulose 30 ml DAILYPRN PRN PO 12/25/24 23:45 Exam Vital Signs Vital Signs Date Time Temp Pulse Resp B/P (MAP) Pulse Ox O2 Delivery O2 Flow Rate FiO2 12/26/24 01:18 98.4 84 12 134/64 (87) 95 98.4 12/25/24 23:12 Room Air* 0 21 Exam General Appearance: Alert, Oriented X3, Cooperative, No acute distress, defibrillator patch present HEENT: Atraumatic, PERRLA, EOMI, Mucous membrane moist/pink Respiratory: Clear to auscultation, Normal air movement Cardiovascular: Regular rate, Normal S1, Normal S2, No murmurs, no chest wall tenderness Abdominal: NO distention, no tenderness, bowel sounds present, no scars noted Extremities: No clubbing, No cyanosis, No edema, Normal pulses, redness and tender on 2 right toe Skin: No rashes, No breakdown, No significant lesion Neuro: Normal gait, Normal speech, Strength at 5/5 X4 ext, Normal tone, Sensation intact, Cranial nerves 3-12 NL, Reflexes 2+ Psych/Mental Status: Mental status NL, Mood NL Labs/Xrays Labs Test 12/26/24 00:13 12/25/24 23:45 12/25/24 20:50 Range/Units Urine Opiates Screen Pos NEGATIVE Urine Fentanyl Screen Neg NEGATIVE Urine Barbiturates Screen Neg NEGATIVE Urine Phencyclidine Screen Neg NEGATIVE Urine Amphetamines Screen Neg NEGATIVE Urine Benzodiazepines Screen Neg NEGATIVE Urine Cocaine Screen Neg NEGATIVE Urine Cannabinoids Screen Pos NEGATIVE Troponin I High Sensitivity 207 *H </=54 ng/L White Blood Count 11.4 H 4.4-10.8 10^3/uL Red Blood Count 5.00 4.5-5.90 10^6/uL Hemoglobin 14.3 13.5-17.5 g/dL Hematocrit 45.4 41.0-53.0 % Mean Corpuscular Volume 90.7 80.0-100.0 fL Mean Corpuscular Hemoglobin 28.5 28.0-32.0 pg Mean Corpuscular Hemoglobin Concent 31.5 L 32.0-36.0 g/dL Red Cell Distribution Width 14.0 11.8-14.3 % Platelet Count 235 140-450 10^3/uL Mean Platelet Volume 8.5 6.9-10.8 fL Neutrophils (%) (Auto) 69.3 37.0-80.0 % Lymphocytes (%) (Auto) 22.5 10.0-50.0 % Monocytes (%) (Auto) 6.5 0.0-12.0 % Eosinophils (%) (Auto) 0.6 0.0-7.0 % Basophils (%) (Auto) 1.1 0.0-2.0 % Neutrophils # (Auto) 7.9 1.6-8.6 10 ^3/uL Lymphocytes # (Auto) 2.6 0.4-5.4 10 ^3/uL Monocytes # (Auto) 0.7 0-1.3 10 ^3/uL Eosinophils # (Auto) 0.1 0-0.8 10 ^3/uL Basophils # (Auto) 0.1 0-0.2 10 ^3/uL Nucleated Red Blood Cells 0.2 % Prothrombin Time 10.3 9.3-11.8 sec Prothrombin Time INR 0.97 0.9-1.15 Activated Partial Thromboplast Time 20.5 L 24.5-34.5 SEC Sodium Level 138 136-145 mmol/L Potassium Level 3.5 3.5-5.1 mmol/L Chloride Level 110 H 98-107 mmol/L Carbon Dioxide Level 17 L 20-31 mmol/L Anion Gap 11 5-15 Blood Urea Nitrogen 15 9-23 mg/dL Creatinine 1.62 H 0.700-1.30 mg/dL Glomerular Filtration Rate Calc 47 >90 mL/min BUN/Creatinine Ratio 9.3 L 10.0-20.0 Serum Glucose 132 H 74-106 mg/dL Calcium Level 9.1 8.7-10.4 mg/dL Magnesium Level 1.9 1.6-2.6 mg/dL Total Bilirubin 0.5 0.2-1.0 mg/dL Aspartate Amino Transferase (AST) 48 H 13-40 U/L Alanine Aminotransferase (ALT) 23 7-40 U/L Alkaline Phosphatase 61 46-116 U/L B-Type Natriuretic Peptide 105.84 0-100 pg/mL Total Protein 6.3 5.7-8.2 g/dL Albumin 4.2 3.2-4.8 g/dL Thyroid Stimulating Hormone (TSH) 6.28 H 0.55-4.78 uIU/mL Plasma/Serum Blood Alcohol < 3.0 <10 mg/dL Assessment/Plan Assessment/Plan Assessment Supraventricular tachycardia History of PA and SVT, Leptospirosis vs q fever, 2020 Elevated troponin x3, but no chest pain Anxiety, HTN REJI due to VMN,( baseline creatinine: 0.72 in 2020) Opiates and cannabinoids positive in the UDS Obesity Grade I, BMI 31.7 Right second toe erythema, rule out infection Rheumatoid Arthritis Plan Patient had a defibrillator patch on him Elevated TSH, Check Free t3 and T4 Vancomycin cardiology consult in the AM Resume home medications Goal of care discussed more than 25 minutes: Full code Case and plan discussed with Dr. Rodrigo Levi discussed with: Patient My Orders Orders - AZRA BROWNING Procedure Category Date Status Time * Cardiology Consult CONS 12/26/24 Transmitted 02:26 AZRA BROWNING Dec 26, 2024 03:00
[2024-12-26 03:05] LABS: Basophils # (auto) 0.1 10 ^3/uL (0-0.2); Basophils % (auto) 0.7 % (0.0-2.0); Eosinophils # (auto) 0.1 10 ^3/uL (0-0.8); Eosinophils % (auto) 1.3 % (0.0-7.0); Hematocrit 41.7 % (41.0-53.0); Hemoglobin 13.9 g/dL (13.5-17.5); Lymphocytes % (auto) 27.5 % (10.0-50.0); Mean Corpuscular Hemoglobin 29.5 pg (28.0-32.0); Mean Corpuscular Hgb Conc. 33.4 g/dL (32.0-36.0); Mean Corpuscular Volume 88.4 fL (80.0-100.0); Monocytes # (auto) 1.2 10 ^3/uL (0-1.3); Monocytes % (auto) 11.4 % (0.0-12.0); Neutrophils # (auto) 6.4 10 ^3/uL (1.6-8.6); Neutrophils % (auto) 59.1 % (37.0-80.0); Nucleated Red Blood Cells % 0.1 %; Platelet Count (auto) 217 10^3/uL (140-450); Red Blood Cells 4.72 10^6/uL (4.5-5.90); White Blood Cell 10.9 10^3/uL (4.4-10.8)
[2024-12-26 03:21] LABS: Alanine Aminotransferase 22 U/L (7-40); Albumin 4.2 g/dL (3.2-4.8); Alkaline Phosphatase 57 U/L (46-116); Anion Gap 7 (5-15); BUN/Creatinine Ratio 12.4 (10.0-20.0); Blood Urea Nitrogen 17 mg/dL (9-23); Calcium 8.9 mg/dL (8.7-10.4); Carbon Dioxide 20 mmol/L (20-31); Glucose 104 mg/dL (74-106); Potassium 3.7 mmol/L (3.5-5.1); Sodium 139 mmol/L (136-145); Total Protein 6.2 g/dL (5.7-8.2)
[2024-12-26 03:22] LABS: Bilirubin, Total 0.3 mg/dL (0.2-1.0)
[2024-12-26 03:23] LABS: Aspartate Aminotransferase 52 U/L (13-40); Chloride 112 mmol/L (98-107)
[2024-12-26 03:25] LABS: Free T3 2.83 pg/mL (2.3-4.2); Free T4 (Free Thyroxine) 0.86 ng/dL (0.89-1.76)
[2024-12-26] MEDS ORDERED: VANCOMYCIN PER PHARMACY 0 MG IV SCH ×2 (06:00→19:30)
[2024-12-26] MEDS: METOPROLOL TARTRATE 25 MG TAB PO ONE (06:15)
[2024-12-26] MEDS: MAGNESIUM SULFATE 1GM/100ML 100 ML IV ONE (06:58)
[2024-12-26 07:49] LABS: Erythrocyte Sedimentation Rate 5 mm/hr (0-20)
[2024-12-26] MEDS: VANCOMYCIN 1GM/200ML PM 250 ML IV SCH (08:40)
--- NOTE | 2024-12-26 09:46 | DVH ---
CLINICAL INDICATION: left foot 3rd toe redness rule out underlying bony disease TECHNIQUE: XY L FOOT 2 VIEW XRAY Comparison: None FINDINGS/IMPRESSION: : There is no evidence of acute fracture or dislocation. Soft tissues are unremarkable.
[2024-12-26] MEDS: LEFLUNOMIDE 20 MG PO SCH (10:00)
[2024-12-26] MEDS: DOCUSATE SOD 100 MG CAP PO SCH (10:47)
[2024-12-26] MEDS: PANTOPRAZOLE 40 MG/10 ML VIAL INJ IV SCH (10:47)
[2024-12-26] MEDS: ASPirin 81 mg TAB PO SCH (10:47)
[2024-12-26] MEDS: DULoxetine HCL 30 MG CAP PO SCH (10:48)
[2024-12-26] MEDS: TAMSULOSIN HYDROCHLORIDE 0.4 MG CAP PO SCH (10:48)
--- NOTE | 2024-12-26 15:12 | DVHSR ---
APPROVED REPORT EXAM: Two-dimensional and M-mode echocardiogram with Doppler and color Doppler. Blood Pressure: 112/76 mmHg INDICATION SVT RISK FACTORS Height: 5'8", Weight: 208 DIMENSIONS LVDd4.8 (3.8-5.7cm)LA (2D)3.8 (1.9-4.0cm)Aortic Root3.8 (2.0-3.7cm) LVDs3.7 (2.5-4.0cm)LA (MM) (1.9-4.0cm)Aortic Cusp Exc1.9 (1.5-2.0cm) EF (%) 55.0 (55-70%)Rt. Atrium4.3 (1.9-4.0cm)Asc. Aorta cm IVSd1.1 (0.7-1.1cm)RV (D)4.0 (1.8-2.4cm) PWd1.1 (0.7-1.1cm) Mitral Valve MitralMitral Stenosis E wave0.82m/sMV Mean GR.mmHg A wave0.76m/sMV Peak GR.mmHg E/A ratio1.12D MVAcm2 DECEL [id number] 1/2 Timems Aortic Valve Aortic ValveAortic Stenosis V10.73m/Lizbeth Mean GR.3mmHg V21.10m/Lizbeth Peak GR.5mmHg LVOT Diameter2.2 (1.8-2.4cm)Doppler AVA2.52cm2 Pulmonic Valve V20.86m/s Tricuspid Valve TR Velocity2.81m/s [id number] Conclusion Sinus rhythm. Left atrial enlargement. Mild aortic root enlargement. Right atrial and right ventricular enlargeme nt. Valves are normal. EF of 55-60%. Normal right ventricular performance. Mild TR. No pericardial effusion masses or vegetations.
--- NOTE | 2024-12-26 15:16 | DVHPN2 ---
Subjective Patient denies any symptoms at this time. Reviewed: Care Plan, H&P, Labs Changes from previous H/P or p: No Changes General: Per HPI Objective Vitals Vital Signs Date Time Temp Pulse Resp B/P (MAP) Pulse Ox O2 Delivery O2 Flow Rate FiO2 12/26/24 13:00 98.3 77 20 167/90 (115) 97 98.3 12/26/24 08:00 Room Air* 0 21 Intake/Output Intake and Output 12/26/24 07:00 Intake Total 100 ml Balance 100 ml Intake Oral 0 ml IV Total 100 ml # Voids 2 # Bowel Movements 1 General Appearance: Alert, Oriented X3, Cooperative, No acute distress HEENT: Atraumatic, PERRLA Cardiovascular: Normal S1, Normal S2 Abdomen: Normal bowel sounds, Soft, No tenderness, No hepatospenomegaly, No masses Back: Flank Tenderness, Midline Tenderness Musculoskeletal: Normal sensory function, Normal motor function Neuro: Normal gait, Normal speech Skin: Dry, Intact Psych/Mental Status: Mental status NL, Mood NL Medications Current Medications Medications Dose Ordered Sig/Rafael Route Start Time Stop Time Status Last Admin Dose Admin Nitroglycerin 0.4 mg Q5MINP PRN SL 12/25/24 23:30 Morphine Sulfate 2 mg Q30M PRN IV 12/25/24 23:30 Acetaminophen/ Hydrocodone Bitart 1 tab TID PO 12/25/24 23:45 12/26/24 14:32 1 TAB Quetiapine Fumarate 100 mg DAILY PO 12/25/24 23:45 12/26/24 10:48 100 MG Tamsulosin HCl 0.4 mg DAILY PO 12/26/24 10:00 12/26/24 10:48 0.4 MG Atorvastatin Calcium 40 mg HS PO 12/26/24 22:00 Aspirin 81 mg DAILY PO 12/26/24 10:00 12/26/24 10:47 81 MG Pantoprazole Sodium 40 mg DAILY IV 12/26/24 10:00 12/26/24 10:47 40 MG Docusate Sodium 100 mg BID PO 12/26/24 10:00 12/26/24 10:47 100 MG Lactulose 30 ml DAILYPRN PRN PO 12/25/24 23:45 Vancomycin HCl 0 ml @ 0 mls/hr UD IV 12/26/24 06:00 Metoprolol Tartrate 25 mg BID PO 12/26/24 22:00 Patient Own Medication 1 DAILY PO 12/26/24 10:00 Duloxetine HCl 30 mg BID PO 12/26/24 10:00 12/26/24 10:48 30 MG Laboratory Results Laboratory Tests 12/26/24 02:55 Chemistry Test 12/25/24 20:50 12/26/24 02:55 Albumin 4.2 g/dL (3.2-4.8) 4.2 g/dL (3.2-4.8) Calcium Level 9.1 mg/dL (8.7-10.4) 8.9 mg/dL (8.7-10.4) Magnesium Level 1.9 mg/dL (1.6-2.6) Total Protein 6.3 g/dL (5.7-8.2) 6.2 g/dL (5.7-8.2) Coagulation Test 12/25/24 20:50 Prothrombin Time 10.3 sec (9.3-11.8) Prothrombin Time INR 0.97 (0.9-1.15) Activated Partial Thromboplast Time 20.5 SEC (24.5-34.5) L Cardiac Markers Test 12/25/24 20:50 B-Type Natriuretic Peptide 105.84 pg/mL (0-100) LFT Test 12/25/24 20:50 12/26/24 02:55 Alanine Aminotransferase (ALT) 23 U/L (7-40) 22 U/L (7-40) Alkaline Phosphatase 61 U/L (46-116) 57 U/L (46-116) Aspartate Amino Transferase (AST) 48 U/L (13-40) H 52 U/L (13-40) H Total Bilirubin 0.5 mg/dL (0.2-1.0) 0.3 mg/dL (0.2-1.0) HgA1c, TSH Test 12/25/24 20:50 Thyroid Stimulating Hormone (TSH) 6.28 uIU/mL (0.55-4.78) H Labs and/or images reviewed: Labs reviewed by me, Image(s) reviewed by me Assessment/Plan Assessment/Plan Impression: -SVT -BPH -primary hypertension -anxiety -NSTEMI rule out type 1 Plan: -discussion made with patient regarding his cardiac history. Apparently had an angiogram in 2022 and was found to have CAD, not amenable for intervention. Patient also reports having intermittent palpitations, as well as having a syncopal episode approximately two months ago. -beta-cedric -echocardiogram pending -cardiology consultation -12 lead ECG: Reviewed -serial troponin -patient unstable to transfer to [facility] at this time. Awaiting Cardiology consultation Total time spent with patient discussing and formulating plan of care: 35 minutes. This medical document was created using an electronic medical record system with [employer] dictation system. Although this document has been carefully reviewed, there may still be some phonetic and typographical errors. These areas are purely typographical due to imperfections of the software programs, and do not reflect any compromise in the patient's medical care. 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
--- NOTE | 2024-12-26 16:18 | DVHINCON2 ---
Date Seen: Dec 26, 2024 Referring Physician Shanell Reason for Consultation Chest pain, palpitations History of Present Illness 64-year-old male with PMH for HTN, HLD, CAD, previous [place], SVT presents to the hospital with chest pressure and palpitation. Patient states he was walking in his home when he had sudden onset of palpitations with chest pressure and diaphoresis. Patient states he has been having intermittent episodes over the last couple of months as well as increased shortness of breath with exertion and chest pressure. Transmission noted to be retrosternal, nonradiating, constant in nature, associated with elevated heart rate diaphoresis and shortness of b reath. EMS was called upon EMS arrival patient noted to be SVT with heart rate in the 180s to 190s. Patient was chemically cardioverted with adenosine successfully, EN route patient ended up going back into SVT and was again chemically cardioverted with adenosine and converted to sinus tachycardia. Initial EKG reviewed and shows supraventricular tachycardia at 182 beats per minute, ST and T-wave depressions anterior and inferior. Subsequent EKG reviewed and shows sinus rhythm at 91 beats per minute post chemical cardioversion still with mild ST and T-wave abnormality anteriorly. Past Medical History CAD [place] HTN SVT HLD Past Surgical History Coronary angiogram 2020 showing moderate nonobstructive CAD to LAD. Family History: FH: stroke G8 MOTHER Family History Denies pertinent family cardiac history Social History Former tobacco use and illicit drug use quit in 2020 included cigarettes, coca ine, and methamphetamines. Current occasional alcohol use sometimes 5-6 beers on weekends. Allergies: Coded Allergies: NO KNOWN ALLERGIES (Unverified , 08/14/17) Home Meds Reported Medications Leflunomide (Leflunomide) 20 Mg Tab, 1 TAB PO DAILY 12/25/24 Duloxetine HCl (Duloxetine HCl) 30 Mg Cap, 1 CAP PO BID 12/25/24 Quetiapine Fumerate (QUETIAPINE FUMARATE) 100 Mg Tab, 1 TAB PO HS 12/25/24 Oxycodone W/ Acetaminophen (Oxycodone/Acetaminophen 10-300 mg) 1 Tab Tab, 1 PO TID 12/25/24 Atorvastatin Calcium (ATORVASTATIN CALCIUM) 40 Mg Tab, 1 TAB PO DAILY 12/25/24 Lisinopril (Lisinopril) 10 Mg Tab, 10 MG PO DAILY, TAB 08/15/17 Tamsulosin Hcl (Tamsulosin Hcl) 0.4 Mg Cap, 1 CAP PO DAILY, #30 CAP 5 Refills 08/15/17 Current Medications Current Medications Medications (Trade) Dose Ordered Sig/Rafael Route PRN Reason Start Time Stop Time Status Last Admin Nitroglycerin (Ntrostat Sublingual) 0.4 mg Q5MINP PRN SL FOR CHEST PAIN 12/25/24 23:30 Morphine Sulfate 2 mg Q30M PRN IV FOR CHEST PAIN 12/25/24 23:30 Acetaminophen/ Hydrocodone Bitart (Carmel 5/325MG Tab) 1 tab TID PO 12/25/24 23:45 12/26/24 14:32 Quetiapine Fumarate (SEROquel TABLET) 100 mg DAILY PO 12/25/24 23:45 12/26/24 10:48 Tamsulosin HCl (Flomax) 0.4 mg DAILY PO 12/26/24 10:00 12/26/24 10:48 Atorvastatin Calcium (Lipitor) 40 mg HS PO 12/26/24 22:00 Aspirin 81 mg DAILY PO 12/26/24 10:00 12/26/24 10:47 Pantoprazole Sodium (Protonix) 40 mg DAILY IV 12/26/24 10:00 12/26/24 10:47 Docusate Sodium (Colace Capsule) 100 mg BID PO 12/26/24 10:00 12/26/24 10:47 Lactulose 30 ml DAILYPRN PRN PO FOR CONSTIPATION 12/25/24 23:45 Vancomycin HCl 0 ml @ 0 mls/hr UD IV 12/26/24 06:00 Vancomycin HCl 250 ml @ 150 mls/hr Q2H IV 12/26/24 07:00 12/26/24 10:39 DC 12/26/24 10:47 Metoprolol Tartrate (Lopressor Tablet) 25 mg BID PO 12/26/24 22:00 Patient Own Medication 1 DAILY PO 12/26/24 10:00 Duloxetine HCl (Cymbalta Capsule) 30 mg BID PO 12/26/24 10:00 12/26/24 10:48 Review of Systems Constitutional: No: Fever, Chills, Sweats, Weakness, Malaise, Other Eyes: No: Pain, Vision change, Conjunctivae inflammation, Eyelid inflammation, Other, Redness ENT: No: Ear pain, Ear discharge, Nose pain, Nose discharge, Nose congestion, Mouth pain, Mouth swelling, Throat pain, Throat swelling, Other Respiratory: No: Cough, Dry, Shortness of breath, , Wheezing, Hemoptysis, Pleuritic Pain, Sputum, Wheezing, Other positive: SOB with exertion Cardiovascular: ; No: , Orthopnea, Paroxysmal Noc. Dyspnea, Edema, Lt Headedness, Other positive: Chest Pain Palpitations Gastrointestinal: No: Nausea, Vomiting, Abdominal Pain, Diarrhea, Constipation, Melena, Hematochezia, Other Genitourinary: No Dysuria, No Frequency, No Incontinence, No Hematuria, No Retention, No Other Musculoskeletal: neck pain; No: other, shoulder pain, arm pain, back pain, hand pain, leg pain, foot pain Skin: No: Rash, Lesions, Jaundice, Bruising, Other Neurological: Other (Dizziness, headache.); No: Weakness, Numbness, Incoordination, Change in speech, Confusion, Seizures Vital Signs Vital Signs Date Time Temp Pulse Resp B/P (MAP) Pulse Ox O2 Delivery O2 Flow Rate FiO2 12/26/24 13:00 98.3 77 20 167/90 (115) 97 98.3 12/26/24 08:00 Room Air* 0 21 Physical Exam General appearance: Patient is well-developed, well-nourished, in no acute distress. HEENT: Exam shows: Normocephalic, atraumatic, PERRLA, EOMI Neck: Supple, no bruits Chest: Equal chest excursion bilaterally. Breath sounds normal-no rales or wheezes. Heart: Rhythm: Regular rate; no murmur or gallop Abdomen: Exam shows: Soft, nontender, nondistended Musculoskeletal: No clubbing, no cyanosis, no lower extremity edema Dermatology: Skin warm, moist. Neurological: Exam shows: Alert and oriented x4, normal speech Available prior records, labs, EKG, rhythm strips reviewed and interpreted Labs/Diagnostic Data Labs Test 12/26/24 08:08 12/26/24 02:55 12/26/24 00:13 12/25/24 20:50 Range/Units Troponin I High Sensitivity 155 *H </=54 ng/L White Blood Count 10.9 H 4.4-10.8 10^3/uL Red Blood Count 4.72 4.5-5.90 10^6/uL Hemoglobin 13.9 13.5-17.5 g/dL Hematocrit 41.7 41.0-53.0 % Mean Corpuscular Volume 88.4 80.0-100.0 fL Mean Corpuscular Hemoglobin 29.5 28.0-32.0 pg Mean Corpuscular Hemoglobin Concent 33.4 32.0-36.0 g/dL Red Cell Distribution Width 14.0 11.8-14.3 % Platelet Count 217 140-450 10^3/uL Mean Platelet Volume 8.5 6.9-10.8 fL Neutrophils (%) (Auto) 59.1 37.0-80.0 % Lymphocytes (%) (Auto) 27.5 10.0-50.0 % Monocytes (%) (Auto) 11.4 0.0-12.0 % Eosinophils (%) (Auto) 1.3 0.0-7.0 % Basophils (%) (Auto) 0.7 0.0-2.0 % Neutrophils # (Auto) 6.4 1.6-8.6 10 ^3/uL Lymphocytes # (Auto) 3.0 0.4-5.4 10 ^3/uL Monocytes # (Auto) 1.2 0-1.3 10 ^3/uL Eosinophils # (Auto) 0.1 0-0.8 10 ^3/uL Basophils # (Auto) 0.1 0-0.2 10 ^3/uL Nucleated Red Blood Cells 0.1 % Erythrocyte Sedimentation Rate 5 0-20 mm/hr Sodium Level 139 136-145 mmol/L Potassium Level 3.7 3.5-5.1 mmol/L Chloride Level 112 H 98-107 mmol/L Carbon Dioxide Level 20 20-31 mmol/L Anion Gap 7 5-15 Blood Urea Nitrogen 17 9-23 mg/dL Creatinine 1.37 H 0.700-1.30 mg/dL Glomerular Filtration Rate Calc 57 >90 mL/min BUN/Creatinine Ratio 12.4 10.0-20.0 Serum Glucose 104 74-106 mg/dL Calcium Level 8.9 8.7-10.4 mg/dL Total Bilirubin 0.3 0.2-1.0 mg/dL Aspartate Amino Transferase (AST) 52 H 13-40 U/L Alanine Aminotransferase (ALT) 22 7-40 U/L Alkaline Phosphatase 57 46-116 U/L C-Reactive Protein High Sensitivity 0.19 <1.0 mg/dL Total Protein 6.2 5.7-8.2 g/dL Albumin 4.2 3.2-4.8 g/dL Free Thyroxine (T4) Calculated 0.86 L 0.89-1.76 ng/dL Free Triiodothyronine (T3) pg/mL 2.83 2.3-4.2 pg/mL Urine Opiates Screen Pos NEGATIVE Urine Fentanyl Screen Neg NEGATIVE Urine Barbiturates Screen Neg NEGATIVE Urine Phencyclidine Screen Neg NEGATIVE Urine Amphetamines Screen Neg NEGATIVE Urine Benzodiazepines Screen Neg NEGATIVE Urine Cocaine Screen Neg NEGATIVE Urine Cannabinoids Screen Pos NEGATIVE Prothrombin Time 10.3 9.3-11.8 sec Prothrombin Time INR 0.97 0.9-1.15 Activated Partial Thromboplast Time 20.5 L 24.5-34.5 SEC Magnesium Level 1.9 1.6-2.6 mg/dL B-Type Natriuretic Peptide 105.84 0-100 pg/mL Thyroid Stimulating Hormone (TSH) 6.28 H 0.55-4.78 uIU/mL Plasma/Serum Blood Alcohol < 3.0 <10 mg/dL Assessment * NSTEMI TypeI vs TypeII. Known significant LAD stenosis in 2020. Check ECHO. Continue aspirn and statin. Troponins stable down trending. POC discussed with patient. Plan for coronary angiogram on Saturday. Patient agreeable with POC. * CAD - Contineu aspirn and statin * SVT - Chemically cardioverted. Amiodarone drip discontinued. Continue metoprolol 50 mg p.o. twice daily. Monitor electrolytes keep K> 4 and mg>2 check echo. * HLD statin. * Uncontrolled HTN - metoprolol titrated up to 50 mg p.o. twice daily, continue trending. Case Discussed with Dr Simon. Follow up echo. Continue telemetry monitoring. Known mid LAD CAD>50%. Plan for coronary angiogram on Saturday. Plan of care discussed with patient and at bedside agreeable with plan of care. NPO after midnight Saturday night. Continue aspirin and statin. Critical care, time spent: 48 minutes This medical document was created using an electronic medical record system with voice recognition software and computerized dictation system. Although this document has been carefully reviewed, there might still be some phonetic and typographical errors. Occasional wrong-word or ``sound-alike substitutions may have occurred due to the inherent limitations of voice recognition software. These areas are purely typographical due to imperfections of the software programs and do not reflect any compromise in the patient's medical care. Please read the chart carefully and recognize, using context, where these substitutions have occurred. Thank you for allowing me to participate in the management of this patient. The treatment plan was discussed with and agreed upon by patient/family including requesting consultants and ordering of imaging/procedures. Plan discussed with: Patient, Spouse NYHA Physical activity limitations: Class4(Severe)discomfort Date of Service: Dec 26, 2024 Billing Provider: JAMES RODRIGUEZ Cardiology Common Codes: [id number] INP/OBS CARE (High), [id number] CARE 30-74 MIN JAMES RODRIGUEZ Dec 26, 2024 16:18
--- NOTE | 2024-12-26 19:12 | ECG ---
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
[2024-12-26] MEDS ORDERED: METOPROLOL TARTRATE 25 MG TAB PO SCH (22:00)
[2024-12-26] MEDS: ATORVASTATIN 20 MG TAB PO SCH (22:49)
[2024-12-26] MEDS: METOPROLOL TARTRATE 25 MG TAB PO SCH (22:52)
[2024-12-27] VITALS (7 sets, daily range): BP systolic 104–136; BP diastolic 42–74; PULSE 51–91; RESP 16–20; TEMP 97.7–97.9; O2SAT 94–98
[2024-12-27 06:26] LABS: Basophils # (auto) 0.1 10 ^3/uL (0-0.2); Basophils % (auto) 1.5 % (0.0-2.0); Eosinophils # (auto) 0.3 10 ^3/uL (0-0.8); Eosinophils % (auto) 3.3 % (0.0-7.0); Hemoglobin 14.1 g/dL (13.5-17.5); Lymphocytes # (auto) 2.6 10 ^3/uL (0.4-5.4); Lymphocytes % (auto) 27.2 % (10.0-50.0); Mean Corpuscular Hemoglobin 28.7 pg (28.0-32.0); Mean Corpuscular Hgb Conc. 32.1 g/dL (32.0-36.0); Mean Corpuscular Volume 89.6 fL (80.0-100.0); Monocytes # (auto) 0.9 10 ^3/uL (0-1.3); Monocytes % (auto) 9.8 % (0.0-12.0); Neutrophils # (auto) 5.5 10 ^3/uL (1.6-8.6); Neutrophils % (auto) 58.2 % (37.0-80.0); Nucleated Red Blood Cells % 0.1 %; Platelet Count (auto) 220 10^3/uL (140-450); Red Blood Cells 4.91 10^6/uL (4.5-5.90); Red Cell Distribution Width 14.2 % (11.8-14.3); White Blood Cell 9.4 10^3/uL (4.4-10.8)
[2024-12-27] MEDS: amLODIPine BESYLATE 5 MG TAB PO SCH (10:11)
--- NOTE | 2024-12-27 11:37 | DVHPN2 ---
Consult Progress Note Subjective Patient reports: No new complaints Review of Systems: CVS:Normal (Denies CP, Palpitaitons, SOB) Objective vital signs Vital Sign Date Time Temp Pulse Resp B/P (MAP) Pulse Ox O2 Delivery O2 Flow Rate FiO2 12/27/24 10:12 65 187/90 12/27/24 08:15 18 97 Room Air* 0 21 12/26/24 17:00 98.3 98.3 Total Intake and Output 12/26/24 12/26/24 12/27/24 15:00 23:00 07:00 Intake Total 500 ml 300 ml Balance 500 ml 300 ml medications Current Medications Medications Dose Ordered Sig/Rafael Route Start Time Stop Time Status Last Admin Dose Admin Nitroglycerin 0.4 mg Q5MINP PRN SL 12/25/24 23:30 Morphine Sulfate 2 mg Q30M PRN IV 12/25/24 23:30 Acetaminophen/ Hydrocodone Bitart 1 tab TID PO 12/25/24 23:45 12/27/24 05:21 1 TAB Quetiapine Fumarate 100 mg DAILY PO 12/25/24 23:45 12/27/24 10:24 100 MG Tamsulosin HCl 0.4 mg DAILY PO 12/26/24 10:00 12/27/24 10:23 0.4 MG Atorvastatin Calcium 40 mg HS PO 12/26/24 22:00 12/26/24 22:49 40 MG Aspirin 81 mg DAILY PO 12/26/24 10:00 12/27/24 10:12 81 MG Pantoprazole Sodium 40 mg DAILY IV 12/26/24 10:00 12/27/24 10:10 40 MG Docusate Sodium 100 mg BID PO 12/26/24 10:00 12/27/24 10:11 100 MG Lactulose 30 ml DAILYPRN PRN PO 12/25/24 23:45 Patient Own Medication 1 DAILY PO 12/26/24 10:00 Duloxetine HCl 30 mg BID PO 12/26/24 10:00 12/27/24 10:11 30 MG Metoprolol Tartrate 50 mg BID PO 12/26/24 22:00 12/27/24 10:12 50 MG Vancomycin HCl 0 ml @ 0 mls/hr UD IV 12/26/24 19:30 Amlodipine Besylate 10 mg DAILY PO 12/27/24 10:00 12/27/24 10:11 10 MG Vancomycin HCl 150 ml @ 150 mls/hr Q18H IV 12/27/24 12:00 Examination: CVS:Normal (Telemetry reviewed and consistent with normal sinus rhythm at 69 bpm. ) laboratory and microbiology Laboratory Tests 12/27/24 04:50 12/26/24 02:55 Test 12/26/24 02:55 Range/Units Serum Glucose 104 74-106 mg/dL Problem List/Assessment/Plan Problem List/Assessment/Plan Assessment * NSTEMI TypeI vs TypeII. Known significant LAD stenosis in 2020. Check ECHO. Continue aspirn and statin. Troponins stable down trending. POC discussed with patient. Plan for coronary angiogram on Saturday. Patient agreeable with POC. * CAD - Contineu aspirn and statin * SVT - Chemically cardioverted. Amiodarone drip discontinued. Continue metoprolol 50 mg p.o. twice daily. Monitor electrolytes keep K> 4 and mg>2 check echo. * HLD statin. * Uncontrolled HTN - metoprolol 50 mg p.o. twice daily, amlodipine 10 mg p.o. daily added. continue trending. Case Discussed with Dr Simon. Echo reviewed and shows preserved LV and RV function, EF 55-60%. Mild TR.. Continue telemetry monitoring, no other episodes of SVT noted on review. Known mid LAD CAD>50%. Recommend cardiac catheterization +/- PCI. All risks, benefits, and alternatives of cardiac catheterization explained to the patient including the risk of stroke, NE, , coronary perforation, pericardial tamponade, contrast induced nephropathy, need for emergent CABG, mechanical support, mechanical ventilation, and bleeding from vascular complications from the procedure. Patient is agreeable to proceed with procedure. Plan of care discussed with patient and at bedside agreeable with plan of care. NPO after midnight. Continue aspirin and statin. Critical care, time spent: 48 minutes This medical document was created using an electronic medical record system with voice recognition software and computerized dictation system. Although this document has been carefully reviewed, there might still be some phonetic and typographical errors. Occasional wrong-word or ``sound-alike substitutions may have occurred due to the inherent limitations of voice recognition software. These areas are purely typographical due to imperfections of the software programs and do not reflect any compromise in the patient's medical care. Please read the chart carefully and recognize, using context, where these substitutions have occurred. Thank you for allowing me to participate in the management of this patient. Plan discussed with: Patient Date of Service: Dec 27, 2024 Billing Provider: JAMES RODRIGUEZ Common Visit Codes: [id number] INP/OBS CARE(HIGH) JAMES RODRIGUEZ Dec 27, 2024 11:37
--- NOTE | 2024-12-27 12:16 | DVHPN2 ---
Subjective Patient denies any symptoms at this time. Reviewed: Care Plan, H&P, Labs Changes from previous H/P or p: No Changes General: Per HPI Objective Vitals Vital Signs Date Time Temp Pulse Resp B/P (MAP) Pulse Ox O2 Delivery O2 Flow Rate FiO2 12/27/24 11:12 51 136/74 12/27/24 08:15 18 97 Room Air* 0 21 12/26/24 17:00 98.3 98.3 Intake/Output Intake and Output 12/27/24 07:00 Intake Total 800 ml Balance 800 ml Intake Oral 300 ml IV Total 500 ml # Voids 4 General Appearance: Alert, Oriented X3, Cooperative, No acute distress HEENT: Atraumatic, PERRLA Cardiovascular: Normal S1, Normal S2 Abdomen: Normal bowel sounds, Soft, No tenderness, No hepatospenomegaly, No masses Back: Flank Tenderness, Midline Tenderness Musculoskeletal: Normal sensory function, Normal motor function Neuro: Normal gait, Normal speech Skin: Dry, Intact Psych/Mental Status: Mental status NL, Mood NL Medications Current Medications Medications Dose Ordered Sig/Rafael Route Start Time Stop Time Status Last Admin Dose Admin Nitroglycerin 0.4 mg Q5MINP PRN SL 12/25/24 23:30 Morphine Sulfate 2 mg Q30M PRN IV 12/25/24 23:30 Acetaminophen/ Hydrocodone Bitart 1 tab TID PO 12/25/24 23:45 12/27/24 05:21 1 TAB Quetiapine Fumarate 100 mg DAILY PO 12/25/24 23:45 12/27/24 10:24 100 MG Tamsulosin HCl 0.4 mg DAILY PO 12/26/24 10:00 12/27/24 10:23 0.4 MG Atorvastatin Calcium 40 mg HS PO 12/26/24 22:00 12/26/24 22:49 40 MG Aspirin 81 mg DAILY PO 12/26/24 10:00 12/27/24 10:12 81 MG Pantoprazole Sodium 40 mg DAILY IV 12/26/24 10:00 12/27/24 10:10 40 MG Docusate Sodium 100 mg BID PO 12/26/24 10:00 12/27/24 10:11 100 MG Lactulose 30 ml DAILYPRN PRN PO 12/25/24 23:45 Patient Own Medication 1 DAILY PO 12/26/24 10:00 Duloxetine HCl 30 mg BID PO 12/26/24 10:00 12/27/24 10:11 30 MG Metoprolol Tartrate 50 mg BID PO 12/26/24 22:00 12/27/24 10:12 50 MG Vancomycin HCl 0 ml @ 0 mls/hr UD IV 12/26/24 19:30 Amlodipine Besylate 10 mg DAILY PO 12/27/24 10:00 12/27/24 10:11 10 MG Vancomycin HCl 150 ml @ 150 mls/hr Q18H IV 12/27/24 12:00 Sodium Chloride 1,000 ml @ 0 mls/hr Q0M IV 12/28/24 00:15 UNV Laboratory Results Laboratory Tests 12/26/24 02:55 12/27/24 04:50 Microbiology Microbiology Date/Time Source Procedure Growth Status 12/25/24 23:45 Blood Blood Culture - Preliminary Resulted Labs and/or images reviewed: Labs reviewed by me, Image(s) reviewed by me Assessment/Plan Assessment/Plan Impression: -SVT -BPH -primary hypertension -anxiety -NSTEMI rule out type 1 Plan: Events: Discussion made with Cardiology. Plans for left heart catheterization t omorrow. Discussed with the patient. Agreeable. Noted to have worsening hypertension. Add amlodipine -beta-cedric -echocardiogram pending -cardiology consultation -12 lead ECG: Reviewed -serial troponin -patient continues to be unstable to transfer to [facility] given NSTEMI probably type 1 with history of CAD that was not intervened on three years ago. Total time spent with patient discussing and formulating plan of care: 35 minutes. This medical document was created using an electronic medical record system with [email or web address] dictation system. Although this document has been carefully reviewed, there may still be some phonetic and typographical errors. These areas are purely typographical due to imperfections of the software programs, and do not reflect any compromise in the patient's medical care. Plan discussed with: Patient, Other (RN) My Orders Orders - PARVEEN ARGUETA NP Procedure Category Date Status Time * Cardiology Consult CONS 12/26/24 Transmitted 14:49 * Development Advisor CONS 12/26/24 Transmitted Consult Amlodipine Tablet PHA 12/27/24 In Process (Norvasc Tablet) 10:00 Hydrocodone-Acet PHA 12/27/24 Logged 5/325mg Tab ([place] 12:15 Pantoprazole Tablet PHA 12/28/24 Logged (Protonix Tablet) 06:00 Date of Service: Dec 27, 2024 Billing Provider: PARVEEN ARGUETA NP Common Visit Codes: [id number] INP/OBS CARE(HIGH) PARVEEN ARGUETA NP Dec 27, 2024 12:16
[2024-12-27] MEDS: HYDROcodone-ACET 5/325MG TAB PO PRN (15:04)
[2024-12-27] MEDS: VANCOMYCIN 750mg/150ml 150 ML IV SCH (17:17)
[2024-12-28] VITALS (11 sets, daily range): BP systolic 99–158; BP diastolic 62–92; PULSE 55–71; RESP 12–18; TEMP 97.3–97.9; O2SAT 94–100
[2024-12-28] MEDS: SODIUM CHLORIDE 0.9% 1,000 ML IV SCH (00:03)
[2024-12-28] MEDS: PANTOPRAZOLE 40 MG TAB PO SCH (05:54)
[2024-12-28 07:05] LABS: Calcium 8.9 mg/dL (8.7-10.4); Potassium 4.1 mmol/L (3.5-5.1); Sodium 140 mmol/L (136-145)
[2024-12-28 07:06] LABS: Anion Gap 7 (5-15); Carbon Dioxide 23 mmol/L (20-31)
[2024-12-28 07:07] LABS: Basophils # (auto) 0.1 10 ^3/uL (0-0.2); Basophils % (auto) 1.5 % (0.0-2.0); Eosinophils # (auto) 0.4 10 ^3/uL (0-0.8); Eosinophils % (auto) 5.4 % (0.0-7.0); Hematocrit 39.7 % (41.0-53.0); Hemoglobin 13.2 g/dL (13.5-17.5); Lymphocytes # (auto) 2.6 10 ^3/uL (0.4-5.4); Lymphocytes % (auto) 34.2 % (10.0-50.0); Mean Corpuscular Hemoglobin 29.9 pg (28.0-32.0); Mean Corpuscular Hgb Conc. 33.3 g/dL (32.0-36.0); Mean Corpuscular Volume 89.9 fL (80.0-100.0); Monocytes # (auto) 0.9 10 ^3/uL (0-1.3); Monocytes % (auto) 11.2 % (0.0-12.0); Neutrophils # (auto) 3.6 10 ^3/uL (1.6-8.6); Neutrophils % (auto) 47.7 % (37.0-80.0); Nucleated Red Blood Cells % 0.1 %; Platelet Count (auto) 193 10^3/uL (140-450); Red Blood Cells 4.42 10^6/uL (4.5-5.90); White Blood Cell 7.6 10^3/uL (4.4-10.8)
[2024-12-28 07:11] LABS: BUN/Creatinine Ratio 12.7 (10.0-20.0); Blood Urea Nitrogen 16 mg/dL (9-23); Glucose 89 mg/dL (74-106)
[2024-12-28 07:16] LABS: Chloride 110 mmol/L (98-107)
--- NOTE | 2024-12-28 07:19 | ECG ---
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
[2024-12-28] MEDS ORDERED: hydrALAZINE HCL 20 MG/ML VL IV PRN (10:15)
--- NOTE | 2024-12-28 10:27 | DVHPN2 ---
Subjective Patient denies any symptoms at this time. Reviewed: Care Plan, H&P, Labs Changes from previous H/P or p: No Changes General: Per HPI Objective Vitals Vital Signs Date Time Temp Pulse Resp B/P (MAP) Pulse Ox O2 Delivery O2 Flow Rate FiO2 12/28/24 10:12 158/87 12/28/24 05:00 97.9 60 14 98 97.9 12/27/24 20:00 Room Air* 0 21 Intake/Output Intake and Output 12/28/24 07:00 Intake Total 550 ml Balance 550 ml Intake Oral 400 ml IV Total 150 ml # Voids 4 General Appearance: Alert, Oriented X3, Cooperative, No acute distress HEENT: Atraumatic, PERRLA Cardiovascular: Normal S1, Normal S2 Abdomen: Normal bowel sounds, Soft, No tenderness, No hepatospenomegaly, No masses Back: Flank Tenderness, Midline Tenderness Musculoskeletal: Normal sensory function, Normal motor function Neuro: Normal gait, Normal speech Skin: Dry, Intact Psych/Mental Status: Mental status NL, Mood NL Medications Current Medications Medications Dose Ordered Sig/Rafael Route Start Time Stop Time Status Last Admin Dose Admin Nitroglycerin 0.4 mg Q5MINP PRN SL 12/25/24 23:30 Morphine Sulfate 2 mg Q30M PRN IV 12/25/24 23:30 Quetiapine Fumarate 100 mg DAILY PO 12/25/24 23:45 12/28/24 10:03 100 MG Tamsulosin HCl 0.4 mg DAILY PO 12/26/24 10:00 12/28/24 10:02 0.4 MG Atorvastatin Calcium 40 mg HS PO 12/26/24 22:00 12/27/24 21:33 40 MG Aspirin 81 mg DAILY PO 12/26/24 10:00 12/28/24 10:03 81 MG Docusate Sodium 100 mg BID PO 12/26/24 10:00 12/27/24 21:33 100 MG Lactulose 30 ml DAILYPRN PRN PO 12/25/24 23:45 Patient Own Medication 1 DAILY PO 12/26/24 10:00 Duloxetine HCl 30 mg BID PO 12/26/24 10:00 12/28/24 10:02 30 MG Vancomycin HCl 0 ml @ 0 mls/hr UD IV 12/26/24 19:30 Amlodipine Besylate 10 mg DAILY PO 12/27/24 10:00 12/28/24 10:12 10 MG Vancomycin HCl 150 ml @ 150 mls/hr Q18H IV 12/27/24 12:00 12/28/24 05:53 150 MLS/HR Sodium Chloride 1,000 ml @ 90 mls/hr Q11H7M IV 12/28/24 00:15 12/28/24 00:03 94 MLS/HR Acetaminophen/ Hydrocodone Bitart 1 tab Q6HP PRN PO 12/27/24 12:15 12/28/24 05:53 1 TAB Pantoprazole Sodium 40 mg DAILY@0600 PO 12/28/24 06:00 12/28/24 05:54 40 MG Metoprolol Tartrate 25 mg BID PO 12/28/24 22:00 UNV Hydralazine HCl 10 mg Q6HP PRN IV 12/28/24 10:15 UNV Laboratory Results Laboratory Tests 12/28/24 05:26 Chemistry Test 12/28/24 05:26 Calcium Level 8.9 mg/dL (8.7-10.4) Microbiology Microbiology Date/Time Source Procedure Growth Status 12/25/24 23:45 Blood Blood Culture - Preliminary Resulted Labs and/or images reviewed: Labs reviewed by me, Image(s) reviewed by me Assessment/Plan Assessment/Plan Impression: -SVT -BPH -primary hypertension -anxiety -NSTEMI rule out type 1 -rule out sepsis with Gram-positive cocci noted in blood. Awaiting final culture Plan: Events: Patient denies any symptoms. -plans for left heart catheterization today -continue IV antibiotic therapy -decrease metoprolol tartrate 25 mg p.o. b.i.d., p.r.n. hydralazine for hypertension -echo reviewed -cardiology consultation : Left heart catheterization today -12 lead ECG: Reviewed -repeat blood culture -patient unstable to transfer to [facility] and given left heart catheterization today for known CAD without intervention. Total time spent with patient discussing and formulating plan of care: 35 minutes. This medical document was created using an electronic medical record system with [employer] system. Although this document has been carefully reviewed, there may still be some phonetic and typographical errors. These areas are purely typographical due to imperfections of the software programs, and do not reflect any compromise in the patient's medical care. Plan discussed with: Patient, Other (RN) My Orders Orders - PARVEEN ARGUETA NP Procedure Category Date Status Time Hydrocodone-Acet PHA 12/27/24 In Process 5/325mg Tab ([place] 12:15 Pantoprazole Tablet PHA 12/28/24 In Process (Protonix Tablet) 06:00 * [place] CONS 12/27/24 Transmitted Consult * Wound Consult CONS 12/27/24 Transmitted Cleanse Wound With KAYLA 12/27/24 In Process Wound Clean 10:55 Metoprolol Tartrate PHA 12/28/24 Logged Tablet (Lopressor Ta 22:00 Blood Culture LUKE 12/28/24 Logged 10:14 Hydralazine Injection PHA 12/28/24 Logged (Apresoline Inject 10:15 Date of Service: Dec 28, 2024 Billing Provider: PARVEEN ARGUETA NP Common Visit Codes: [id number] INP/OBS CARE(HIGH) PARVEEN ARGUETA NP Dec 28, 2024 10:27
[2024-12-28] MEDS: HEPARIN IN NS 1000Units/500mL 1,500 ML ONE (12:04)
[2024-12-28] MEDS: IODIXANOL 320MG/ML 100ML BTL IV ONE (12:04)
[2024-12-28] MEDS: fentaNYL CITRATE 100 MCG/2 ML VL ONE (12:07)
[2024-12-28] MEDS: VERAPAMIL 2.5MG/ML INJ 2ML VIAL IV ONE (12:07)
[2024-12-28] MEDS: MIDAZOLAM HCL 2MG/2ML 2ml VIAL (1mg/ml) ONE (12:07)
[2024-12-28] MEDS: LIDOCAINE 2%HCL (LOCAL ANESTH.) INJ 20ML MDV ONE (12:08)
[2024-12-28] MEDS: ANGIOMAX 250 MG VIAL IV ONE (12:12)
[2024-12-28] MEDS: HEPARIN SODIUM (PORCINE) 5000 UNITS/ML 1ML VIAL ONE (12:49)
--- NOTE | 2024-12-28 13:32 | DVHOP2 ---
Operative Report Operative Report CARDIAC M[facility]ION WORKER PROCEDURE REPORT [place], [place] Date of Service: 12/28/24 Concrete Engineering Technician: Makayla Zuluaga MD PROCEDURES PERFORMED: Coronary angiogram, left heart catheterization, conscious sedation administration and supervision, less than 15 minutes; fluoroscopy use and interpretation. PREOPERATIVE DIAGNOSES: ACS/ nstemi/ hx of cad POSTOP DIAGNOSIS: cad DESCRIPTION OF PROCEDURE: The patient or appropriate family signed informed consent understanding the risks, benefits and alternatives of the procedure, they wished to proceed. The patient was brought to the cardiac asphalt plant laborer in n.p.o. state. The patient was prepped in a sterile fashion. Sedation was used per cardiac cath protocol. I administered 2 mL of 2% lidocaine to the right wrist. With an antegrade front wall puncture. I cannulated the right radial artery and placed a 6-[place] Glidesheath slender. Next, an intra-arterial spasmolytic was administered. Next, a - 6[place] catheter and XXXXX guide and were used for coronary angiogram and LVEDP measurement and pressure pullback. At the completion of procedure, all guides and wires were removed, and there were no immediate complications. 4000 U of iv heparin given FINDINGS: RCA: Moderate vessel off the right sinus of Valsalva, there is no severe flow limiting stenosis. 30% prox to Mid RCA stenosis noted. LEFT MAIN: Moderate size left main, it bifurcates into LAD and circumflex. no severe stenosis. CIRCUMFLEX: Moderate caliber vessel coming off the left main with no flow limiting stenosis. mild mid vessel plaque LAD: LAD is a moderate caliber vessel coming of the left main. mid LAD has a focal 50-60% stenosis noted. sluggish flow suggestive of microvascular disease with moderate diffuse distal plaquing. LVEDP of 11 mhg CONCLUSIONS: 1. moderate CAD ,noted from [facility] 2020 showing 50% LAD lesion PLAN: Aggressive risk factor modification and medical management for the patient. SVT management consider IFR /vs nuclear ischemic eval of anterior wall in future if indicated asa, statin MAKAYLA ZULUAGA MD Dec 28, 2024 13:32
--- NOTE | 2024-12-28 13:33 | DVHPN2 ---
Progress Note Date Seen: Dec 28, 2024 Medical Necessity Reason Pt with a Central, PICC or Fol: No Subjective Patient reports: Feels better Objective vital signs Vital Sign Date Time Temp Pulse Resp B/P (MAP) Pulse Ox O2 Delivery O2 Flow Rate FiO2 12/28/24 12:51 97.7 61 13 124/62 (82) 94 97.7 12/27/24 20:00 Room Air* 0 21 Total Intake and Output 12/27/24 12/27/24 12/28/24 15:00 23:00 07:00 Intake Total 550 ml 0 ml Balance 550 ml 0 ml medications Current Medications Medications Dose Ordered Sig/Rafael Route Start Time Stop Time Status Last Admin Dose Admin Nitroglycerin 0.4 mg Q5MINP PRN SL 12/25/24 23:30 Morphine Sulfate 2 mg Q30M PRN IV 12/25/24 23:30 Quetiapine Fumarate 100 mg DAILY PO 12/25/24 23:45 12/28/24 10:03 100 MG Tamsulosin HCl 0.4 mg DAILY PO 12/26/24 10:00 12/28/24 10:02 0.4 MG Atorvastatin Calcium 40 mg HS PO 12/26/24 22:00 12/27/24 21:33 40 MG Aspirin 81 mg DAILY PO 12/26/24 10:00 12/28/24 10:03 81 MG Docusate Sodium 100 mg BID PO 12/26/24 10:00 12/27/24 21:33 100 MG Lactulose 30 ml DAILYPRN PRN PO 12/25/24 23:45 Patient Own Medication 1 DAILY PO 12/26/24 10:00 Duloxetine HCl 30 mg BID PO 12/26/24 10:00 12/28/24 10:02 30 MG Vancomycin HCl 0 ml @ 0 mls/hr UD IV 12/26/24 19:30 Amlodipine Besylate 10 mg DAILY PO 12/27/24 10:00 12/28/24 10:12 10 MG Vancomycin HCl 150 ml @ 150 mls/hr Q18H IV 12/27/24 12:00 12/28/24 05:53 150 MLS/HR Sodium Chloride 1,000 ml @ 90 mls/hr Q11H7M IV 12/28/24 00:15 12/28/24 11:30 94 MLS/HR Acetaminophen/ Hydrocodone Bitart 1 tab Q6HP PRN PO 12/27/24 12:15 12/28/24 05:53 1 TAB Pantoprazole Sodium 40 mg DAILY@0600 PO 12/28/24 06:00 12/28/24 05:54 40 MG Metoprolol Tartrate 25 mg BID PO 12/28/24 22:00 Hydralazine HCl 10 mg Q6HP PRN IV 12/28/24 10:15 Examination: GENERAL:Abnormal, HEENT:Abnormal, LUNGS:Abnormal, CVS:Abnormal, ABDOMEN:Abnormal laboratory and microbiology Laboratory Tests 12/28/24 05:26 Test 12/28/24 05:26 Range/Units Serum Glucose 89 74-106 mg/dL Microbiology Date/Time Source Procedure Growth Status 12/25/24 23:45 Blood Blood Culture - Preliminary Resulted Problem List/Assessment/Plan Problem List/Assessment/Plan svt copd elevated troponin htn obesity s/p cath ,modrate cad asa, statin cont BB outpt eval for SVT ablation pending Plan discussed with: Patient My Orders My Orders Orders - MAKAYLA ZULUAGA MD Procedure Category Date Status Time Cl Left Heart Cath CL 12/28/24 Taken 07:57 Post Cath Vital Signs KAYLA 12/28/24 In Process Q 15min 12:58 Post Cath Activity KAYLA 12/28/24 In Process Protocol 12:58 Cardiac DIET 12/28/24 Transmitted Diet-2gna,Lofat,Lochol Lunch Communication Order ORDERS 12/28/24 Transmitted 13:00 Dietary Evaluation Review Recommendations by RD: Dietary education by RD Comments: 1) Initiate multivitamin @ 1 tb qd 2) Initiate vitamin C @ 500 mg bid and zinc sulfate @ 220 mg qd for 7-10 days 3) Consider Loperamide or soluble fiber to resolve diarrhea 4) Refer to outpatient RD for weight management 5) Refer to social media developer r/t polysubstance abuse 6) Follow-up with cardiology and nephrology 7) Continue to monitor I&O, labs, and skin integrity Expected Outcomes/Goals: 1) appetite and labs to improve 2) f/u in 3-5 days Date of Service: Dec 28, 2024 Billing Provider: MAKAYLA ZULUAGA MD Common Visit Codes: NOT BILLABLE MAKAYLA ZULUAGA MD Dec 28, 2024 13:33
[2024-12-28] MEDS: METOPROLOL TARTRATE 25 MG TAB PO SCH (22:02)
[2024-12-29 01:00] VITALS: BP 143/81; PULSE 65; RESP 19; TEMP 98; O2SAT 95
[2024-12-29 05:00] VITALS: BP 161/80; PULSE 68; RESP 17; TEMP 98; O2SAT 97
[2024-12-29 07:49] LABS: Basophils # (auto) 0.1 10 ^3/uL (0-0.2); Basophils % (auto) 1.7 % (0.0-2.0); Eosinophils # (auto) 0.4 10 ^3/uL (0-0.8); Eosinophils % (auto) 4.9 % (0.0-7.0); Hematocrit 43.5 % (41.0-53.0); Hemoglobin 14.5 g/dL (13.5-17.5); Lymphocytes # (auto) 2.5 10 ^3/uL (0.4-5.4); Lymphocytes % (auto) 29.1 % (10.0-50.0); Mean Corpuscular Hemoglobin 29.9 pg (28.0-32.0); Mean Corpuscular Hgb Conc. 33.4 g/dL (32.0-36.0); Mean Corpuscular Volume 89.6 fL (80.0-100.0); Monocytes % (auto) 11.6 % (0.0-12.0); Neutrophils # (auto) 4.5 10 ^3/uL (1.6-8.6); Neutrophils % (auto) 52.7 % (37.0-80.0); Nucleated Red Blood Cells % 0.1 %; Platelet Count (auto) 216 10^3/uL (140-450); Red Blood Cells 4.85 10^6/uL (4.5-5.90); Red Cell Distribution Width 13.9 % (11.8-14.3); White Blood Cell 8.5 10^3/uL (4.4-10.8)
--- NOTE | 2024-12-29 08:22 | DVHPN2 ---
Consult Progress Note Date Seen: Dec 29, 2024 Subjective Review of Systems: CVS:Normal, RESPIRATORY:Normal, NEURO:Normal Other Systems: Denies any cardiac complains Objective vital signs Vital Sign Date Time Temp Pulse Resp B/P (MAP) Pulse Ox O2 Delivery O2 Flow Rate FiO2 12/29/24 05:00 98.0 68 17 161/80 (107) 97 98.0 12/28/24 20:00 Room Air* 0 21 Total Intake and Output 12/28/24 12/28/24 12/29/24 15:00 23:00 07:00 Intake Total 600 ml 1194 ml Output Total 500 ml Balance 600 ml 694 ml medications Current Medications Medications Dose Ordered Sig/Rafael Route Start Time Stop Time Status Last Admin Dose Admin Nitroglycerin 0.4 mg Q5MINP PRN SL 12/25/24 23:30 Morphine Sulfate 2 mg Q30M PRN IV 12/25/24 23:30 Quetiapine Fumarate 100 mg DAILY PO 12/25/24 23:45 12/28/24 10:03 100 MG Tamsulosin HCl 0.4 mg DAILY PO 12/26/24 10:00 12/28/24 10:02 0.4 MG Atorvastatin Calcium 40 mg HS PO 12/26/24 22:00 12/28/24 22:02 40 MG Aspirin 81 mg DAILY PO 12/26/24 10:00 12/28/24 10:03 81 MG Docusate Sodium 100 mg BID PO 12/26/24 10:00 12/27/24 21:33 100 MG Lactulose 30 ml DAILYPRN PRN PO 12/25/24 23:45 Patient Own Medication 1 DAILY PO 12/26/24 10:00 Duloxetine HCl 30 mg BID PO 12/26/24 10:00 12/28/24 22:02 30 MG Vancomycin HCl 0 ml @ 0 mls/hr UD IV 12/26/24 19:30 Amlodipine Besylate 10 mg DAILY PO 12/27/24 10:00 12/28/24 10:12 10 MG Vancomycin HCl 150 ml @ 150 mls/hr Q18H IV 12/27/24 12:00 12/29/24 00:39 150 MLS/HR Sodium Chloride 1,000 ml @ 90 mls/hr Q11H7M IV 12/28/24 00:15 12/29/24 00:52 94 MLS/HR Acetaminophen/ Hydrocodone Bitart 1 tab Q6HP PRN PO 12/27/24 12:15 12/29/24 07:12 1 TAB Pantoprazole Sodium 40 mg DAILY@0600 PO 12/28/24 06:00 12/29/24 05:16 40 MG Metoprolol Tartrate 25 mg BID PO 12/28/24 22:00 12/28/24 22:02 25 MG Hydralazine HCl 10 mg Q6HP PRN IV 12/28/24 10:15 Examination: LUNGS:Normal, CVS:Normal (No further SVT events on monitor), NEURO:Normal laboratory and microbiology Laboratory Tests 12/29/24 06:24 12/28/24 05:26 Test 12/28/24 05:26 Range/Units Serum Glucose 89 74-106 mg/dL Problem List/Assessment/Plan Problem List/Assessment/Plan (Dr. Simon) * NSTEMI with moderate CAD to the LAD at 50-60%. Continue aspirn and statin. Transthoracic echocardiogram revealed EF 55-60%. * SVT - Chemically cardioverted. Amiodarone drip discontinued. Continue metoprolol 25 mg p.o. twice daily. Monitor electrolytes keep K> 4 and mg>2. The patient could benefit from an outpatient event monitor and EP evaluation if deemed necessary. * Uncontrolled HTN - metoprolol 25 mg p.o. twice daily, amlodipine 10 mg p.o. daily added. Uptitrate as necessary There is no further cardiac work-up indicated at this time. Kindly call if in need to re-consult. Thank you for allowing me to participate in the management of this patient. This medical document was created using an electronic medical record system with voice recognition software and computerized dictation system. Although this document has been carefully reviewed, there might still be some phonetic and typographical errors. Occasional wrong-word or ``sound-alike substitutions may have occurred due to the inherent limitations of voice recognition software. These areas are purely typographical due to imperfections of the software programs and do not reflect any compromise in the patient's medical care. Please read the chart carefully and recognize, using context, where these substitutions have occurred. Plan discussed with: Patient, Other Dietary Evaluation Review Recommendations by RD: Dietary education by RD Comments: 1) Initiate multivitamin @ 1 tb qd 2) Initiate vitamin C @ 500 mg bid and zinc sulfate @ 220 mg qd for 7-10 days 3) Consider Loperamide or soluble fiber to resolve diarrhea 4) Refer to outpatient RD for weight management 5) Refer to vp digital marketing social media and crm r/t polysubstance abuse 6) Follow-up with cardiology and nephrology 7) Continue to monitor I&O, labs, and skin integrity Expected Outcomes/Goals: 1) appetite and labs to improve 2) f/u in 3-5 days Date of Service: Dec 29, 2024 Billing Provider: SERENITY VICTORIA Cardiology Common Codes: [id number] INP/OBS CARE(Mod) SERENITY VICTORIA Dec 29, 2024 08:22
[2024-12-29 08:30] VITALS: PULSE 60
[2024-12-29 09:00] VITALS: BP 140/81; PULSE 57; RESP 18; TEMP 97.9; O2SAT 94
--- NOTE | 2024-12-29 11:40 | DVHDS2 ---
Discharge Summary Date of Admission Dec 25, 2024 at 23:16 Date of Discharge: Dec 29, 2024 Labs/Diagnostic Data: Laboratory Results Test 12/29/24 06:24 12/28/24 05:26 12/27/24 04:50 12/26/24 08:08 White Blood Count 8.5 10^3/uL (4.4-10.8) Red Blood Count 4.85 10^6/uL (4.5-5.90) Hemoglobin 14.5 g/dL (13.5-17.5) Hematocrit 43.5 % (41.0-53.0) Mean Corpuscular Volume 89.6 fL (80.0-100.0) Mean Corpuscular Hemoglobin 29.9 pg (28.0-32.0) Mean Corpuscular Hemoglobin Concent 33.4 g/dL (32.0-36.0) Red Cell Distribution Width 13.9 % (11.8-14.3) Platelet Count 216 10^3/uL (140-450) Mean Platelet Volume 8.7 fL (6.9-10.8) Neutrophils (%) (Auto) 52.7 % (37.0-80.0) Lymphocytes (%) (Auto) 29.1 % (10.0-50.0) Monocytes (%) (Auto) 11.6 % (0.0-12.0) Eosinophils (%) (Auto) 4.9 % (0.0-7.0) Basophils (%) (Auto) 1.7 % (0.0-2.0) Neutrophils # (Auto) 4.5 10 ^3/uL (1.6-8.6) Lymphocytes # (Auto) 2.5 10 ^3/uL (0.4-5.4) Monocytes # (Auto) 1.0 10 ^3/uL (0-1.3) Eosinophils # (Auto) 0.4 10 ^3/uL (0-0.8) Basophils # (Auto) 0.1 10 ^3/uL (0-0.2) Nucleated Red Blood Cells 0.1 % Creatinine 1.17 mg/dL (0.700-1.30) Glomerular Filtration Rate Calc 69 mL/min (>90) Sodium Level 140 mmol/L (136-145) Potassium Level 4.1 mmol/L (3.5-5.1) Chloride Level 110 mmol/L (98-107) Carbon Dioxide Level 23 mmol/L (20-31) Anion Gap 7 (5-15) Blood Urea Nitrogen 16 mg/dL (9-23) BUN/Creatinine Ratio 12.7 (10.0-20.0) Serum Glucose 89 mg/dL (74-106) Calcium Level 8.9 mg/dL (8.7-10.4) Random Vancomycin Level 6.9 ug/mL (5-10) Troponin I High Sensitivity 155 ng/L (</=54) Test 12/26/24 02:55 12/26/24 00:13 12/25/24 20:50 Erythrocyte Sedimentation Rate 5 mm/hr (0-20) Total Bilirubin 0.3 mg/dL (0.2-1.0) Aspartate Amino Transferase (AST) 52 U/L (13-40) Alanine Aminotransferase (ALT) 22 U/L (7-40) Alkaline Phosphatase 57 U/L (46-116) C-Reactive Protein High Sensitivity 0.19 mg/dL (<1.0) Total Protein 6.2 g/dL (5.7-8.2) Albumin 4.2 g/dL (3.2-4.8) Free Thyroxine (T4) Calculated 0.86 ng/dL (0.89-1.76) Free Triiodothyronine (T3) pg/mL 2.83 pg/mL (2.3-4.2) Urine Opiates Screen Pos (NEGATIVE) Urine Fentanyl Screen Neg (NEGATIVE) Urine Barbiturates Screen Neg (NEGATIVE) Urine Phencyclidine Screen Neg (NEGATIVE) Urine Amphetamines Screen Neg (NEGATIVE) Urine Benzodiazepines Screen Neg (NEGATIVE) Urine Cocaine Screen Neg (NEGATIVE) Urine Cannabinoids Screen Pos (NEGATIVE) Prothrombin Time 10.3 sec (9.3-11.8) Prothrombin Time INR 0.97 (0.9-1.15) Activated Partial Thromboplast Time 20.5 SEC (24.5-34.5) Magnesium Level 1.9 mg/dL (1.6-2.6) B-Type Natriuretic Peptide 105.84 pg/mL (0-100) Thyroid Stimulating Hormone (TSH) 6.28 uIU/mL (0.55-4.78) Plasma/Serum Blood Alcohol < 3.0 mg/dL (<10) Other Laboratory Tests 12/29/24 06:24 12/28/24 05:26 Brief Hx & Hospital Course: see dictated note Condition at Discharge: Fair Final Diagnosis/Problems List nstemi Discharge Disposition: Home Discharge Instruct/Medications Diet: Cardiac 2g Na,low cholest Activity: No Restrictions, As Tolerated Follow Up/Referral: fu with pcp in 1 wk Medications: resume home meds except lisinopril script to pharmacy Discharge Statement: "Patient was advised to return to the ER or call 911 if any headaches, dizziness, shortness of breath, chest pain, abdominal pain, bleeding, fevers, or worsening of medical condition. Patient was counseled about treatment plan, medications, possible side effects, patientverbalized understanding. All questions were answered to the best of my ability. This discharge took greater then 30 minutes in planning, reviewing documentation, counseling the patient, and discussing with other team members." ASSESSMENT ASSESSMENT Assessment nstemi Date of Service: Dec 29, 2024 Billing Provider: WINDY ELAM MD Common Visit Codes: [id number] DISCH DAY >30min Secondary Visit Codes: [id number] CARE PLAN 30 MINUTES WINDY ELAM MD Dec 29, 2024 11:40
[2024-12-29] MEDS ORDERED: AMLO1TAB23 PO (11:42)
[2024-12-29] MEDS ORDERED: MET25T PO (11:42)
--- NOTE | 2024-12-29 11:53 | DVHDS ---
DATE OF DISCHARGE: 12/30/2024 HISTORY OF PRESENT ILLNESS: The patient is a 64-year-old gentleman who was admitted with complaints of palpitations and shortness of breath and subsequently received adenosine. He has history of SVT, rheumatoid arthritis, vasculitis, BPH, hypertension, hyperlipidemia. HOSPITAL COURSE: The patient was seen in Cardiology consult by Dr. Carvajal. Troponin levels were elevated up to 243. His TSH was 6.28. Creatinine was 1.6, that improved to 1.17 at time of discharge. Tox screen was positive for cannabis. The patient had a chest x-ray that showed no acute pathology. The patient underwent a coronary angiography by Dr. Carvajal that showed moderate coronary artery disease showing a 50% LAD lesion. Echocardiogram done showed ejection fraction of 55-60%. The patient is now doing well and will be discharged home to resume his home medications except lisinopril and will also be placed on Lopressor 25 mg p.o. b.i.d. and Norvasc 10 mg daily. He will follow up with his testing consultant and his primary care doctor. The patient is to stop his lisinopril. FINAL DIAGNOSES: Therefore, * Acute myocardial infarction, status post coronary angiography. * Supraventricular tachycardia. * Acute renal failure, questionable vasomotor nephropathy. * Rheumatoid arthritis. * Benign prostatic hypertrophy. * Anxiety. * Hyperlipidemia. * Questionable hypothyroidism. * Obesity. Time spent in discharge planning and review of plan with the patient and nursing was 38 minutes. I also gave a copy of the coronary angiography report to the patient. Advance care planning, the patient is a full code. Time spent in advance care planning was 18 minutes. MD DAINA Huddleston/HÉCTOR TID: [id number] RECEIPT: [id number]
[2024-12-29 13:00] VITALS: BP 126/85; PULSE 66; RESP 18; TEMP 98; O2SAT 96
[2024-12-29 17:00] VITALS: BP 141/70; PULSE 74; RESP 18; TEMP 97.6; O2SAT 97
== END 2024-12-29 16:55 | disposition home or self-care (01) | DRG 280 ==
LOC: EDBD 20:24 → ER 20:24 → OVERFLOW 23:16 → TELE-EAST 12-26 03:12
PROVIDERS: ADMIT Internal Medicine; ATTEND Internal Medicine
PROC: 05H933Z Insertion of Infusion Device into Right Brachial Vein, Percutaneous Approach (ICD-10-PCS; 2024-12-27)
PROC: B54MZZA Ultrasonography of Right Upper Extremity Veins, Guidance (ICD-10-PCS; 2024-12-27)
PROC: B211YZZ Fluoroscopy of Multiple Coronary Arteries using Other Contrast (ICD-10-PCS; principal; 2024-12-28)
PROC: 4A023N7 Measurement of Cardiac Sampling and Pressure, Left Heart, Percutaneous Approach (ICD-10-PCS; 2024-12-28)
DX: I21.4 Non-ST elevation (NSTEMI) myocardial infarction (principal); N17.0 Acute kidney failure with tubular necrosis; I47.10 Supraventricular tachycardia, unspecified; I25.10 Atherosclerotic heart disease of native coronary artery without angina pectoris; F41.9 Anxiety disorder, unspecified; I10 Essential (primary) hypertension; E78.00 Pure hypercholesterolemia, unspecified; E66.9 Obesity, unspecified; M06.9 Rheumatoid arthritis, unspecified; J44.9 Chronic obstructive pulmonary disease, unspecified; D64.9 Anemia, unspecified; F10.10 Alcohol abuse, uncomplicated; Y90.0 Blood alcohol level of less than 20 mg/100 ml; E03.9 Hypothyroidism, unspecified; N40.0 Benign prostatic hyperplasia without lower urinary tract symptoms; Z79.891 Long term (current) use of opiate analgesic; Z79.899 Other long term (current) drug therapy; Z79.1 Long term (current) use of non-steroidal anti-inflammatories (NSAID); Z87.891 Personal history of nicotine dependence; Z68.31 Body mass index [BMI] 31.0-31.9, adult; I25.2 Old myocardial infarction; Z82.3 Family history of stroke
CPT/HCPCS: 36415; 71045; 73620; 80048; 80053; 80202; 80307; 80320; 82565; 83735; 83880; 84439; 84443; 84481; 84484; 85025; 85610; 85652; 85730; 86141; 86850; 86900; 86901; 87040; 87077; 87186; 93005; 93306; 93458; 96365; 96375; 99152; 99291; G0378; J0153; J2250; J2470; Q9967